=== PATIENT | male | born 1960 | race Caucasian/White ===

== ENCOUNTER → 2020-03-20 09:11 | Outpatient (BNVA) | payer MEDICARE, MEDICAID, SELFPAY | PROVIDERS: Visit Provider Nurse Practitioner Family | DX: R53.83 Other fatigue (principal); Z12.5 Encounter for screening for malignant neoplasm of prostate; E78.2 Mixed hyperlipidemia; E11.9 Type 2 diabetes mellitus without complications; I10 Essential (primary) hypertension; E55.9 Vitamin D deficiency, unspecified | CPT/HCPCS: 36415; 85025 ==

== ENCOUNTER → 2020-03-20 11:00 | Outpatient (BNVA) | payer MEDICARE, MEDICAID, SELFPAY | PROVIDERS: Visit Provider Nurse Practitioner Family | DX: I10 Essential (primary) hypertension (principal); E11.9 Type 2 diabetes mellitus without complications; E78.2 Mixed hyperlipidemia; E55.9 Vitamin D deficiency, unspecified; R53.83 Other fatigue; Z12.5 Encounter for screening for malignant neoplasm of prostate | CPT/HCPCS: 80053; 80061; 82306; 83036; 84153; 84443 ==

== ENCOUNTER 2020-07-13 09:13 | Inpatient (IN) | payer MEDICARE, MEDICAID, SELFPAY ==
[2020-07-13] VITALS (8 sets, daily range): BP systolic 90–156; BP diastolic 58–83; PULSE 102–122; RESP 18–23; TEMP 36.9–37.6; O2SAT 93–96; BMI 24.1
--- NOTE | 2020-07-13 09:45 | ECG_ITS ---
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 Measurements Intervals Nelson Rate: 107 P: 62 AR: 151 QRS: -9 QRSD: 100 T: 70 QT: 327 QTc: 438 Interpretive Statements SINUS TACHYCARDIA POSSIBLE LEFT ATRIAL ENLARGEMENT [-0.1mV P WAVE IN V1/V2] SEPTAL MYOCARDIAL INFARCTION , OF INDETERMINATE AGE [40+ ms Q WAVE IN V1/V2] No previous ECG available for comparison Electronically Signed On 07-13-2020 11:56:10 CDT by Raphael Thorne M.D. [id number]
--- NOTE | 2020-07-13 09:45 | XRR_ITS ---
PROCEDURE INFORMATION: Exam: XR Chest, 1 View Exam date and time: 07/13/2020 9:55 AM Age: 60 years old Clinical indication: Other: Pain all over; Additional info: Dyspnea/cough TECHNIQUE: Imaging protocol: XR of the chest Views: 1 view. COMPARISON: No relevant prior studies available. FINDINGS: Lungs: There is mild patchy opacification in the right upper lobe of the lung. The left lung is clear. Pleural space: Unremarkable. No pleural effusion. No pneumothorax. Heart/Mediastinum: Unremarkable. No cardiomegaly. Bones/joints: Unremarkable. XR/XR chest 1V portable [id number] IMPRESSION: There is mild patchy opacification in the right upper lobe of the lung consistent with pneumonia. A mass would also be a consideration.If there is desire for further evaluation, a CT scan could be performed.
--- NOTE | 2020-07-13 09:46 | CT_ITS ---
WS: [id number] CT HEAD TECHNIQUE: Noncontrast CT of the head obtained from the skullbase to the vertex. CLINICAL INFORMATION: Lsided weakness COMPARISON: None. DLP: 866.[address] scans at [facility] use at least one of these dose optimization techniques: automat ed exposure control; mA and/or kV adjustment per patient size (includes targeted exams where dose is matched to clinical indication); or iterative reconstruction. FINDINGS: No evidence of intracranial hemorrhage or mass effect. Ventricular system and basal cisterns are drake nt. Mild small vessel changes with mild parenchymal volume loss. No extra-axial fluid collections. No evidence of mass or mass effect. Normal mohan-white differentiation. Paranasal sinuses and mastoid air cells are well aerated. .Normal visualized soft tissues. Attempted notification Terrence Langford DO at 07/13/2020 10:[address]/CT head wo con* [id number] IMPRESSION: 1. No evidence of intracranial hemorrhage or mass effect. 2. Mild small vessel changes. Mild parenchymal volume loss. 3. No acute intracranial findings.
--- NOTE | 2020-07-13 09:49 | W.ED.GENADLT ---
HPI - General Adult General: Chief complaint: General Medical Stated complaint: PAIN ALL OVER Time Seen by Provider: 07/13/20 09:17 History of Present Illness: HPI narrative: 60 yo resents with complaints of muscle aches last week he had a subjective fever yesterday denies chest pain or cough. He did have a slight bit of diarrhea but that was after the use of a laxative because he been constipated he is not had any anosmia. He has had some slurring of speech and weakness of his legs, he can raise the right leg off the bed but is unable to demonstrate [id number] he cannot even raise the left leg off of the bed he has a previous injury to his right arm and cannot use it very well he has some nerve damage loss of extension at the wrist so he is a little bit difficult to evaluate Associated symptoms: Deny chest pain, dyspnea, malaise, nausea, rash or vomiting Review of Systems Const: Denies: fever(s), chills, body aches, change in appetite, fatigue or malaise ENMT: Denies: throat pain, ear or mastoid pain, nasal discharge or nasal congestion Card: Denies: chest pain, edema, dyspnea on exertion or orthopnea Resp: Denies: dyspnea, productive cough or non-productive cough GI: Denies: abdominal pain, nausea, vomiting, hematemesis, coffee ground emesis, diarrhea, constipation, bloating, hematochezia or melena : Denies: flank pain, dysuria, urinary frequency or urinary urgency Skin/Breast: Denies: rash or pruritus PFS ED PFSH: Medical History COPD (chronic obstructive pulmonary disease) Diabetes Essential hypertension Mixed hyperlipidemia Vitamin D deficiency Social History Smoking and tobacco status: current every day smoker Second hand smoke exposure: No Alcohol intake: current Desire information about alcohol rehabilitation?: No Counseling given: No Physical Exam Const: COMMON NORMALS: no acute distress GENERAL APPEARANCE: cooperative and comfortable ORIENTATION/CONSCIOUSNESS: Yes awake, Yes oriented to person, Yes oriented to place and Yes oriented to time HENMT: COMMON NORMALS: normocephalic and atraumatic HEAD & SCALP: normocephalic and atraumatic Eye: COMMON NORMALS: Equal, round and reactive pupils present, EOMs intact bilaterally, conjunctivae normal and no scleral icterus CONJUNCTIVA: Yes conjunctivae normal PUPIL: Yes Equal, round and reactive pupils present Neck/C-Spine: COMMON NORMALS: full ROM, no lymphadenopathy, supple and no JVD Lymph: LYMPHATIC: no lymphadenopathy noted and no lymphedema noted Resp: COMMON NORMALS: normal respiratory effort, No retractions, No use of accessory muscles and clear to auscultation bilaterally AUSCULTATION: clear to auscultation bilaterally Cardio: COMMON NORMALS: no JVD, regular rate, regular rhythm and No murmurs present (Cardio) RATE: regular rate RHYTHM: regular rhythm GI: COMMON NORMALS: Soft to palpation and No hepatosplenomegaly present AUSCULTATION: Yes normoactive bowel sounds PALPATION: Yes Soft to palpation, No Tenderness to palpation present (GI), No Guarding due to palpation present (GI) and Yes No hepatosplenomegaly present Extremity: NARRATIVE EXTREMITY EXAM: Loss of extension at the wrist on the right hand he cannot functionally make wrist there was a long-term problem he has no pronator drift in the left hand and 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 Lower extremities no edema he has the ability to raise the right leg up off the bed and hold it up in the year for a count of 5 to 7 seconds, he cannot demonstrate [id number] using the right leg or the left leg and he cannot lift left leg above the bed. Neuro: SENSORIUM/ORIENTATION: Yes oriented to person, Yes oriented to place and Yes oriented to time Skin: COMMON NORMALS: no rashes or lesions noted GENERAL SKIN EXAM: no rashes or lesions noted Course Vital Signs: Vital signs: Vital Signs Temperature 98.5 F 07/13/20 09:19 Pulse Rate 119 H 07/13/20 10:30 Respiratory Rate 22 H 07/13/20 09:30 Blood Pressure 107/78 07/13/20 10:30 Pulse Oximetry 94 07/13/20 09:30 MDM - General Adult MDM Narrative: Medical decision making narrative: Patient has leukocytosis hyponatremia his hyponatremia does correct to 126. He is a little bit tachycardic as well. His chest x-ray was normal he does look like he has a cystitis. He also looks to be volume contracted. We will give him fluid bolus admit him for IV antibiotics correction of his hyponatremia and replenishment of fluids. He may also need increased level of medication for managing his diabetes. Discussed Dr. Mccoy she will admit. Lab Data: Labs: Lab Results 07/13/20 07/13/20 07/13/20 Range/Units 10:15 10:15 10:15 WBC 23.9 H (4.0-10.0) 10^3/ uL RBC 3.96 L (4.1-5.3) 10^6/u L Hgb 13.5 (11.7-16.6) g/dL Hct 37.7 L (42.0-52.0) % MCV 95.2 H (80-94) fL MCH 34.1 H (28.0-34.0) pg MCHC 35.8 (30.0-36.0) g/dL RDW 11.7 L (12.1-15.1) % Plt Count 111 L (130-400) 10^3/c mm MPV 11.2 H (7.4-10.4) fL Neut % (Auto) 89.0 % Lymph % (Auto) 2.3 % Davis % (Auto) 6.7 % Eos % (Auto) 0.2 % Baso % (Auto) 0.0 % Neut # (Auto) 21.26 H (1.8-7.7) 10^3/u L Lymph # (Auto) 0.6 L (0.8-4.8) 10^3/u L Davis # (Auto) 1.6 H (0.2-0.9) 10^3/u L Eos # (Auto) 0.0 (0.0-0.8) 10^3/u L Baso # (Auto) 0.0 (0.0-0.1) 10^3/u L Nucleated RBC % (a uto) 0 % Nucleated RBCs # 0.0 /100WBC Sodium 122 L (136-145) mmol/L Potassium 3.9 (3.5-5.1) mmol/L Chloride 85 L (98-107) mmol/L Carbon Dioxide 23 (22-29) mmol/L Anion Gap 17.9 (5-19) BUN 47 H (8-23) mg/dL Creatinine 1.0 (0.7-1.2) mg/dL GFR Calculation 76.2 L (90-130) mL/min Glucose 349 H (65-115) mg/dL Calculated Osmolal ity 266 L (285-295) mOsm/k g Lactic Acid 3.3 H (0.5-2.2) mmol/L Calcium 8.2 L (8.5-10.5) mg/dL Total Bilirubin 1.0 (0.15-1.2) mg/dL AST 97 H (0-40) U/L ALT 53 H (0-41) U/L Alkaline Phosphata se 138 H (40-130) IU/L Creatine Kinase 86 (39-308) U/L Total Protein 7.0 (6.6-8.7) g/dL Albumin 2.7 L (3.5-5.2) g/dL Globulin 4.3 (1.3-4.6) g/dL Urine Color (Yellow) Urine Appearance (CLEAR) Urine pH (5-7) Ur Specific Gravit y (1.005-1.030) Urine Protein (Negative) Urine Glucose (UA) (Normal) Urine Ketones (Negative) Urine Blood (Negative) Urine Nitrate (Negative) Urine Bilirubin (NEGATIVE) Urine Urobilinogen (Negative) mg/dL Ur Leukocyte Nia ase (Negative) Urine RBC (0-2) /hpf Urine WBC (0-5) /hpf Ur Squamous Epith Cells (0-5) Amorphous Sediment Urine Bacteria (NONE) Hyaline Casts Fine Granular Cast s /lpf Urine Mucus 07/13/20 Range/Units 10:20 WBC (4.0-10.0) 10^3/ uL RBC (4.1-5.3) 10^6/u L Hgb (11.7-16.6) g/dL Hct (42.0-52.0) % MCV (80-94) fL MCH (28.0-34.0) pg MCHC (30.0-36.0) g/dL RDW (12.1-15.1) % Plt Count (130-400) 10^3/c mm MPV (7.4-10.4) fL Neut % (Auto) % Lymph % (Auto) % Davis % (Auto) % Eos % (Auto) % Baso % (Auto) % Neut # (Auto) (1.8-7.7) 10^3/u L Lymph # (Auto) (0.8-4.8) 10^3/u L Davis # (Auto) (0.2-0.9) 10^3/u L Eos # (Auto) (0.0-0.8) 10^3/u L Baso # (Auto) (0.0-0.1) 10^3/u L Nucleated RBC % (a uto) % Nucleated RBCs # /100WBC Sodium (136-145) mmol/L Potassium (3.5-5.1) mmol/L Chloride (98-107) mmol/L Carbon Dioxide (22-29) mmol/L Anion Gap (5-19) BUN (8-23) mg/dL Creatinine (0.7-1.2) mg/dL GFR Calculation (90-130) mL/min Glucose (65-115) mg/dL Calculated Osmolal ity (285-295) mOsm/k g Lactic Acid (0.5-2.2) mmol/L Calcium (8.5-10.5) mg/dL Total Bilirubin (0.15-1.2) mg/dL AST (0-40) U/L ALT (0-41) U/L Alkaline Phosphata se (40-130) IU/L Creatine Kinase (39-308) U/L Total Protein (6.6-8.7) g/dL Albumin (3.5-5.2) g/dL Globulin (1.3-4.6) g/dL Urine Color Kohler (Yellow) Urine Appearance Clear (CLEAR) Urine pH 5 (5-7) Ur Specific Gravit y 1.015 (1.005-1.030) Urine Protein 1+ H (Negative) Urine Glucose (UA) 4+ H (Normal) Urine Ketones 1+ H (Negative) Urine Blood 3+ H (Negative) Urine Nitrate Negative (Negative) Urine Bilirubin 1+ H (NEGATIVE) Urine Urobilinogen 1 H (Negative) mg/dL Ur Leukocyte Nia ase Trace H (Negative) Urine RBC 5-10 H (0-2) /hpf Urine WBC 15-25 H (0-5) /hpf Ur Squamous Epith Cells None (0-5) Amorphous Sediment Not Reportable Urine Bacteria 2+ H (NONE) Hyaline Casts 10-15 H Fine Granular Cast s 0-4 H /lpf Urine Mucus Trace Discharge Plan Discharge Patient Disposition: Admitted As Inpatient Clinical Impression: Cystitis, Diabetes, Essential hypertension, Acute hyponatremia, Sepsis Condition: Stable Prescriptions: No Action hydrocodone-acetaminophen 10-325 mg tablet 1 tab PO TID PRN (Reason: Pain) RF: 0 amlodipine 2.5 mg tablet 2.5 mg PO DAILY 30 Days Qty: 30 RF: 5 lisinopril 40 mg tablet 40 mg PO DAILY 30 Days Qty: 30 RF: 5 Januvia 25 mg tablet 25 mg PO DAILY Qty: 30 RF: 0 metformin 500 mg tablet 500 - 1,000 mg PO DAILY PRN (Reason: Type II DM) 30 Days Qty: 60 RF: 2 Aspir-81 81 mg Tablet,Delayed Release (Dr/Ec) 81 mg PO PRN RF: 0 Coding Level of Care Code 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
[2020-07-13 10:22] LABS: Eosinophils % 0.2 %; Hematocrit 37.7 % (42.0-52.0); Hemoglobin 13.5 g/dL (11.7-16.6); Lymphocytes # 0.6 10^3/uL (0.8-4.8); Lymphocytes % 2.3 %; Mean Corpuscular HGB Conc 35.8 g/dL (30.0-36.0); Mean Corpuscular Hemoglobin 34.1 pg (28.0-34.0); Mean Corpuscular Volume 95.2 fL (80-94); Mean Platelet Volume 11.2 fL (7.4-10.4); Monocytes # 1.6 10^3/uL (0.2-0.9); Monocytes % 6.7 %; Neutrophils # 21.26 10^3/uL (1.8-7.7); Nucleated Red Blood Cells % 0 %; Platelet Count 111 10^3/cmm (130-400); Red Blood Count 3.96 10^6/uL (4.1-5.3); Red Cell Distribution Width 11.7 % (12.1-15.1); White Blood Count 23.9 10^3/uL (4.0-10.0)
[2020-07-13 10:39] LABS: Alanine Aminotransferase 53 U/L (0-41); Albumin Level 2.7 g/dL (3.5-5.2); Alkaline Phosphatase 138 IU/L (40-130); Anion Gap 17.9 (5-19); Aspartate Amino Transferase 97 U/L (0-40); Blood Urea Nitrogen 47 mg/dL (8-23); Calcium 8.2 mg/dL (8.5-10.5); Carbon Dioxide 23 mmol/L (22-29); Chloride 85 mmol/L (98-107); Creatine Phosphokinase 86 U/L (39-308); Globulin 4.3 g/dL (1.3-4.6); Glomerular Filtration Rate 76.2 mL/min (90-130); Glucose 349 mg/dL (65-115); Osmolality Calculated 266 mOsm/kg (285-295); Potassium 3.9 mmol/L (3.5-5.1); Sodium 122 mmol/L (136-145)
[2020-07-13 11:06] LABS: Add Urine Microscopic? YES; Bilirubin Urine 1+ (NEGATIVE); Blood Urine 3+ (Negative); Glucose Urine UA 4+ (Normal); Ketones Urine 1+ (Negative); Leukocyte Esterase Urine Trace (Negative); Nitrate Urine Negative (Negative); Protein Urine 1+ (Negative); Specific Gravity, Urine 1.015 (1.005-1.030); Urine Appearance Clear (CLEAR); Urine Color Orange (Yellow); Urobilinogen Urine 1 mg/dL (Negative); pH Urine 5 (5-7)
[2020-07-13 11:07] LABS: Add Urine Culture? Yes; Bacteria Urine 2+; Fine Granular Casts Urine 0-4 /lpf; Mucus Urine TRACE; WBC Urine 15-25 /hpf (0-5)
[2020-07-13] MEDS: sodium chloride 0.9% 1,000 ML 999 ML IV (11:39)
[2020-07-13] MEDS: cefTRIAXone 1,000 MG in sodium chloride 0.9% (plus) 50 ML 100 MG IV (11:39)
[2020-07-13 11:55] LABS: Lactic Sepsis W/Reflex 3.3 mmol/L (0.5-2.2)
--- NOTE | 2020-07-13 12:44 | CT_ITS ---
WS: [id number] CT LUMBAR SPINE TECHNIQUE: Noncontrast CT of the lumbar spine with coronal and sagittal reformatted images. CLINICAL INFORMATION: Severe back pain COMPARISON: None. DLP: 1916.[address] scans at [facility] use at least one of these dose optimization techniques: automat ed exposure control; mA and/or kV adjustment per patient size (includes targeted exams where dose is matched to clinical indication); or iterative reconstruction. FINDINGS: Mild lumbar curve. No acute compression. No high-grade central canal stenosis. Mild disc bulging L3-L 4, L4-L5 and L5-S1. L1-L2: Normal. L2-L3: Mild annular bulging. Mild left foraminal narrowing. Spinal canal and right foramen are patent . Mild facet arthropathy. L3-L4: Mild annular bulging with a tiny central protrusion. Spinal canal and foramen are patent. Mild facet arthropathy. L4-L5: Broad-based central disc protrusion with mild central canal stenosis. Narrowing of the right subarticular recess. Encroachment traversing right L5 nerve root. Mild facet arthropathy. Mild right foraminal narrowing. L5-S1: Tiny central disc protrusion with slight effacement of the ventral thecal sac. Slight encroach ment traversing S1 nerve roots without significant impingement. Foramen are patent. Mild facet arthro saman. Visualized pelvic bony structures: Normal. Paravertebral soft tissues: Normal. CT/CT lumbar spine wo con* [id number] IMPRESSION: 1. Mild lumbar curve. No acute compression. No high-grade central canal stenos is. 2. Mild annular bulging L4-5 with a small central right pericentral protrusio n. Mild central canal stenosis with mild right foraminal narrowing. Encroachmen t traversing right L5 nerve root. 3. Small central protrusion L5-S1 with slight encroachment traversing S1 nerve roots bilaterally. 4. Mild facet arthropathy L4-L5 and L5-S1.
--- NOTE | 2020-07-13 12:44 | CT_ITS ---
WS: [id number] CT THORACIC SPINE TECHNIQUE: Noncontrast CT of the thoracic spine with coronal and sagittal reformatted images. CLINICAL INFORMATION: severe back pain COMPARISON: None. DLP: 1327.[address] scans at [facility] use at least one of these dose optimization techniques: automat ed exposure control; mA and/or kV adjustment per patient size (includes targeted exams where dose is matched to clinical indication); or iterative reconstruction. FINDINGS: Mild thoracic kyphosis. Mild thoracic curve. No high-grade central canal stenosis. No acute appearing compression fractures. Disc space heights and vertebral body heights well-preserved. Minimal spondyl itic changes. Mild to moderate facet arthropathy lower thoracic spine. Partially visualized opacity w ith cavitation in the right upper lobe laterally. Recommend further evaluation with chest CT. This is only partially visualized and measures 2.[address]/CT thoracic spin wo con* [id number] IMPRESSION: 1. Mild thoracic curve. Mild thoracic kyphosis. 2. No acute appearing compression fractures. 3. No significant central canal stenosis. 4. Partially visualized cavitating lesion in the right upper lobe laterally me asuring 2.5 x 2.1 CM. Neoplasm is not excluded. Recommend further evaluation wi chest CT. This is only partially evaluated.
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
[2020-07-13 13:13] LABS: Reflex Lactate Order REFLEX LACTIC ORDERD
[2020-07-13] MEDS: enoxaparin 40 mg/0.4 mL Syringe SUBCUT (13:21)
[2020-07-13 13:42] LABS: Estmated Average Glucose 174; Hemoglobin A1C 7.7 % (4.0-6.0)
[2020-07-13 14:00] LABS: Hepatitis A Antibody IgM Non-Reactive (Nonreactive); Hepatitis B Core IgM Non-Reactive (Nonreactive); Hepatitis B Surface Antigen Non-Reactive (Nonreactive); Hepatitis C Virus Antibody Non-Reactive (Nonreactive)
[2020-07-13 14:15] LABS: Lactic Acid level (Lactate) 2.3 mmol/L (0.5-2.2)
[2020-07-13 15:52] LABS: Sodium 127 mmol/L (136-145)
[2020-07-13 17:22] LABS: Glucose Point of Care 241 mg/dL (70-110)
--- NOTE | 2020-07-13 17:49 | PC.NURSE ---
Brother Greg Coello phone number is Home:
--- NOTE | 2020-07-13 17:49 | PC.NURSE ---
Som green lunchbox with medications sent home with patient's brother.
--- NOTE | 2020-07-13 20:24 | CTR_ITS ---
PROCEDURE INFORMATION: Exam: CT Chest With Contrast Exam date and time: 07/13/2020 9:36 PM Age: 60 years old Clinical indication: Abnormal findings; Lung mass or nodule; H[place]ck[place] lesion; Additional info: Cavitary lesion on CT thoracic spine TECHNIQUE: Imaging protocol: Computed tomography of the chest with intravenous contrast. Radiation optimization: All CT scans at this facility use at least one of these dose optimization techniques: automated exposure control; mA and/or kV adjustment per patient size (includes targeted exams where dose is matched to clinical indication); or iterative reconstruction. Contrast material: OMNI 300; Contrast volume: 95 ml; Contrast route: INTRAVENOUS (IV); COMPARISON: CR XR chest 1V portable [id number] 07/13/2020 9:46 AM RADIATION DOSE METRICS: Total DLP (mGy-cm): 505.99 FINDINGS: Lungs: There is a 3.2 x 2.5 cm pleural based mass in the right upper lobe of the lung as seen on sagittal image 54. There is internal gas. No associated calcification. There is an adjacent 0.7 cm nodule in the right upper lobe on series 2, image 19 and a 1.3 cm nodule in the anterior right upper lobe on image 24. There are nodules in the right middle lobe on series 2, images 39 and 40 measuring less than a cm in size. There is a 1.3 cm nodule in the left upper lobe with internal cavitation on series 2, image 22 and a 0.3 cm nodule in the left lower lobe on image 34. There is a calcified granuloma in the right middle lobe of the lung. Pleural space: Unremarkable. No pneumothorax. No pleural effusion. Heart: Unremarkable. No cardiomegaly. No pericardial effusion. Mediastinal space: There are right paratracheal and subcarinal mediastinal calcifications. Aorta: Unremarkable. No aortic aneurysm. Lymph nodes: Unremarkable. No enlarged lymph nodes. Adrenals: There is thickening of the left adrenal gland. Bones/joints: Unremarkable. No acute fracture. Soft tissues: Unremarkable. CT/CT chest w con* [id number] IMPRESSION: There is a pleural based mass in the right upper lobe of the lung with internal cavitation. Other nodules are identified in the bilateral lungs. Findings are suspicious for malignancy with multifocal metastatic nodules.If there is desire for further evaluation, a PET scan or biopsy could be performed. Radiation Dose CTDIVOL = (mGy): DLP = 505.99 (mGy-cm)
[2020-07-13 20:36] LABS: Glucose Point of Care 172 mg/dL (70-110)
[2020-07-13] MEDS: iohexol 300 mg/mL 100 mL Btl IV (22:01)
[2020-07-13] MEDS: sodium chloride 0.9% 1,000 ML 75 ML IV (22:42)
[2020-07-13 23:32] LABS: Sodium 130 mmol/L (136-145)
[2020-07-14] VITALS (7 sets, daily range): BP systolic 108–137; BP diastolic 62–69; PULSE 91–108; RESP 14–24; TEMP 36.4–38.8; O2SAT 93–96; BMI 24.1
[2020-07-14 04:43] LABS: Basophils # 0.2 10^3/uL (0.0-0.1); Basophils % 0.8 %; Hematocrit 35.2 % (42.0-52.0); Hemoglobin 12.2 g/dL (11.7-16.6); Lymphocytes # 0.7 10^3/uL (0.8-4.8); Lymphocytes % 3.2 %; Mean Corpuscular HGB Conc 34.7 g/dL (30.0-36.0); Mean Corpuscular Hemoglobin 33.4 pg (28.0-34.0); Mean Corpuscular Volume 96.4 fL (80-94); Mean Platelet Volume 12.1 fL (7.4-10.4); Monocytes # 1.5 10^3/uL (0.2-0.9); Monocytes % 6.8 %; Neutrophils # 19.74 10^3/uL (1.8-7.7); Neutrophils % 87.6 %; Nucleated Red Blood Cells % 0 %; Platelet Count 85 10^3/cmm (130-400); Red Blood Count 3.65 10^6/uL (4.1-5.3); Red Cell Distribution Width 11.9 % (12.1-15.1); White Blood Count 22.5 10^3/uL (4.0-10.0)
[2020-07-14] MEDS: acetaminophen 325 mg Tablet 650 MG PO (05:38)
[2020-07-14 05:56] LABS: Alanine Aminotransferase 48 U/L (0-41); Albumin Level 2.2 g/dL (3.5-5.2); Alkaline Phosphatase 129 IU/L (40-130); Anion Gap 16.5 (5-19); Aspartate Amino Transferase 74 U/L (0-40); Blood Urea Nitrogen 29 mg/dL (8-23); Carbon Dioxide 23 mmol/L (22-29); Chloride 99 mmol/L (98-107); Globulin 3.7 g/dL (1.3-4.6); Glomerular Filtration Rate 98.6 mL/min (90-130); Glucose 215 mg/dL (65-115); Osmolality Calculated 284 mOsm/kg (285-295); Potassium 3.5 mmol/L (3.5-5.1); Sodium 135 mmol/L (136-145); Total Bilirubin 0.7 mg/dL (0.15-1.2); Total Protein 5.9 g/dL (6.6-8.7)
[2020-07-14 06:40] LABS: Glucose Point of Care 206 mg/dL (70-110)
--- NOTE | 2020-07-14 10:22 | USCV_ITS ---
Nik Coello Age: 60 Gender: M : 1960 Exam Date: 07/14/2020 14:35 Ordering Phys: Brina Mccoy DO Technologist: Shira Chong Exam Location: [facility] [place] Indication: BACTERMIA BP: / HR: 110 Rhythm: Sinus Technical Quality: Adequate MEASUREMENTS (Male / Female) Normal Values 2D ECHO LV Diastolic Diameter PLAX 4.0 cm 4.2 - 5.9 / 3.9 - 5.3 cm LV Systolic Diameter PLAX 2.3 cm LV Chamber Size 4.0 cm IVS Diastolic Thickness 1.7 cm 0.6 - 1.0 / 0.6 - 0.9 cm IVS Systolic Thickness 1.4 cm LVPW Diastolic Thickness 1.1 cm 0.6 - 1.0 / 0.6 - 0.9 cm LVPW Systolic Thickness 1.1 cm RV Chamber Size 2.3 cm LVOT Diameter 2.0 cm LV Ejection Fraction 2D Teich 74.1 % LV Ejection Fraction MOD 2C 34.3 % LV Ejection Fraction 2C AL 36.1 % LA Diameter 6.0 cm LA Width 3.9 cm LA Height 4.8 cm RA Width 3.4 cm RA Height 3.5 cm Aorta at Sinotubular Diameter 3.0 cm M-MODE LV Diastolic Diameter MM 4.2 cm 4.2 - 5.9 / 3.9 - 5.3 cm LV Systolic Diameter MM 2.0 cm LV Ejection Fraction MM Teich 82.7 % IVS Diastolic Thickness MM 1.2 cm 0.6 - 1.0 / 0.6 - 0.9 cm IVS Systolic Thickness MM 1.7 cm LVPW Diastolic Thickness MM 1.3 cm 0.6 - 1.0 / 0.6 - 0.9 cm LVPW Systolic Thickness MM 1.5 cm RV Diastolic Diameter MM 1.4 cm Aortic Annulus Diameter 3.5 cm LA Ao Ratio MM 1.7 MV E Point Septal Separation 0.6 cm DOPPLER AV Peak Velocity 245.0 cm/s LVOT Peak Velocity 156.0 cm/s AV Area Cont Eq vti 2.4 cm squared AV Area Cont Eq pk 2.1 cm squared MV Area PHT 5.1 cm squared Mitral E to A Ratio 1.2 MV E' Velocity 8.0 cm/s Mitral E to MV E' Ratio 12.5 Mitral E to LV E' Lateral Ratio 17.4 Mitral E to LV E' Septal Ratio 9.8 TR Peak Velocity 262.4 cm/s TR Peak Gradient 27.5 mmHg TR Mean Velocity 200.1 cm/s TR Mean Gradient 18.0 mmHg TR Velocity Time Integral 58.4 cm TV Peak E Velocity 87.0 cm/s Right Atrial Pressure 3.0 mmHg Pulmonary Artery Systolic Pressu 30.5 mmHg PV Peak Velocity 109.0 cm/s RV Acceleration Time 0.1 s RV Ejection Time 0.3 s RV AcT/ET 0.5 FINDINGS Left Ventricle Normal left ventricular size, systolic function and wall thickness, with no regional wall motion abnormalities. Normal left ventricular wall thickness. LVEF is 60 to 65%. Normal diastolic filling pattern. Right Ventricle The right ventricle is normal in size and function. Right Atrium The right atrium is normal in size. Left Atrium The left atrium is normal in size. Mitral Valve There is a fluttering structure in proximity to mitral valve. This could represent subvalvular apparatus/chordae. Cannot rule out vegetation. Aortic Valve Aortic valve is thickened.. There is mild aortic stenosis. Tricuspid Valve Structurally normal tricuspid valve without significant stenosis or regurgitation. Insufficient TR jet to measure RVSP. Pulmonic Valve Structurally normal pulmonic valve without significant stenosis. There is no pulmonic regurgitation. Pericardium Normal pericardium without effusion. Aorta Normal ascending aorta dimension. CONCLUSIONS LV systolic function is normal with EF of 60 to 65%. Normal diastolic function. There is a fluttering structure in proximity to mitral valve. This could represent subvalvular apparatus/chordae however cannot rule out vegetation. If clinical suspicion of endocarditis is present, will recommend performing transesophageal echocardiogram. Raphael Thorne MD (Electronically Signed) Final Date: 14 July 2020 19:05 S
--- NOTE | 2020-07-14 10:47 | PC.CHAP ---
Pastoral Care Encounter/Spiritual Assessment Type of Contact [] Declined bait maker visit [] Patient/Family/Request visit [] Outpatient visit [] Follow-up visit [] Physician referral [] Code/Alert [x] Routine visit [] Staff referral [] Actively dying [] Patient sleeping [] Family support [] [] Out of room [] Palliative care [] [x] Receiving care in room [] Pre-surgical visit [] Trauma [x] Long length of stay [] ICU visit [] Other: Relational/Emotional Strength [x] Patient feels connected with others/family/visitors/staff [] Distress [] Loneliness/isolation [] Abandonment Spirituality of Patient [] Person of Lexi [] Attends Gnosticist of their Lexi [] Believes in Prayer [] Reads Bible or Jewish materials [] There are Spiritual issues to be addressed Deicer Finisher Interventions [] Prayer [] Active listening [] Non-anxious presence [] Spiritual/emotional support [] Crisis/trauma care [x] Spiritual counseling [] Bereavement support [] Provided bereavement packet [] Provided Bible/devotional materials [] Provided toy/stuffed animal, coloring book to patient or family member [] Provided Communion [] Anointing/[place] [] Salvation [] Completed spiritual assessment [] Other: Impact on Illness or Injury [] Angry [] Fearful [] Anxious [] Often cries [] Exhaustion [x] Unable to work [] Unable to attend uatsdin [] Unable to walk/stand [] Unable to read [x] Unable to drive [] Unable to eat/drink [] Unable to sleep [] Unable to be with family [] Patient intubated [] Other: Summary In pain doesn't know about treatment or any testing, has negative attitude, able to communicate Time spent with patient 10 mins
--- NOTE | 2020-07-14 11:27 | PM.PN ---
Subjective Subjective: Interval history: Patient awake in bed at time of exam today. Reported that he felt tired due to having vitals and labs overnight. He reported that the left leg weakness is slightly improved today. Reports that he feels slightly better with more energy but continues to feel ill. Patient denies any chest pain, no cough, no abdominal pain or nausea. Vitals/I&O/Wt Last Vital Signs Temp 98.1 F 07/14/20 08:00 Pulse 91 07/14/20 08:00 Resp 18 07/14/20 08:00 BP 108/62 07/14/20 08:00 Pulse Ox 94 07/14/20 08:00 07/13/20 07/14/20 07/14/20 22:59 06:59 14:59 Intake Total 220 / 2433.63 240 / 240 Output Total 425 / 726 Balance 219 / 2132.63 -425 / 1707.63 240 / 240 Weight last 48 hrs Weight 72.121 kg Weight 72.121 kg Physical Exam Const: COMMON NORMALS: patient oriented x3 and alert GENERAL APPEARANCE: cooperative and frail appearing NUTRITIONAL APPEARANCE: thin ORIENTATION/CONSCIOUSNESS: Yes awake, Yes oriented to person, Yes oriented to place and Yes oriented to time HENMT: COMMON NORMALS: normocephalic and atraumatic HEAD & SCALP: normocephalic and atraumatic Eye: COMMON NORMALS: Equal, round and reactive pupils present PUPIL: Yes Equal, round and reactive pupils present Neck/C-Spine: COMMON NORMALS: supple GENERAL: Yes normal visual inspection Resp: COMMON NORMALS: normal respiratory effort and clear to auscultation bilaterally EFFORT & INSPECTION: Yes able to speak in complete sentences AUSCULTATION: clear to auscultation bilaterally, no rhonchi and no wheezes Cardio: COMMON NORMALS: regular rhythm RATE: tachycardic RHYTHM: regular rhythm OTHER: Faint systolic murmur GI: COMMON NORMALS: Soft to palpation INSPECTION: No abdominal distension AUSCULTATION: Yes normoactive bowel sounds PALPATION: Yes Soft to palpation OTHER: No tenderness to palpation today : COMMON NORMALS: Yes no CVA tenderness BLADDER/KIDNEY EXAM: Yes no CVA tenderness Back/Pelvis: COMMON NORMALS: no CVA tenderness Extremity: COMMON NORMALS: no clubbing, cyanosis or edema and no calf tenderness Neuro: COMMON NORMALS: patient oriented x3, CN's II-XII intact bilaterally and no focal motor deficits SENSORIUM/ORIENTATION: Yes alert, Yes oriented to person, Yes oriented to place and Yes oriented to time SPEECH: speech normal OTHER: Normal sensation in the lower extremities bilaterally, normal movement of the left upper extremity, chronic contracture in the right upper extremity Difficulty raising the leg with straight leg raise on the left No saddle anesthesia, no incontinence of bowel or bladder Psych: COMMON NORMALS: mental status grossly normal and cooperative Skin: COMMON NORMALS: no rashes or lesions noted GENERAL SKIN EXAM: no rashes or lesions noted Data : 07/14/20 04:10 07/14/20 04:10 Micro: Microbiology 07/14/20 10:45 Blood Culture - Preliminary Blood SPECIMEN COLLECTED 07/14/20 10:34 Blood Culture - Preliminary Blood SPECIMEN COLLECTED 07/13/20 10:20 Urine Culture - Preliminary Urine,Clean Catch Staphylococcus aureus 07/13/20 10:15 Blood Culture - Preliminary Blood Gram positive cocci 07/13/20 11:32 Blood Culture - Preliminary Blood Gram positive cocci A&P Assessment and plan (1) Sepsis: Secondary to bacteremia Urine and blood now showing gram-positive cocci, broadened antibiotic coverage with IV vancomycin and Zosyn Hold home antihypertensives Status: Acute (2) Cystitis: Urine culture showing gram-positive cocci Concern for MSSA or MRSA bacteremia, awaiting further culture results. Broadened antibiotic coverage to IV vancomycin and Zosyn Status: Acute (3) Acute hyponatremia: Improved Status: Acute (4) Essential hypertension: Hold home amlodipine and lisinopril Status: Acute (5) Diabetes: Hold metformin due to lactic acidosis Place on moderate dose sliding scale insulin Status: Acute Additional A&P Information Staph aureus bacteremia: Repeat blood cultures ordered today, broadened antibiotic coverage to IV vancomycin and Zosyn. Echocardiogram ordered. Will further evaluate with MRI of the cervical, thoracic and lumbar spine to determine cause of infectious process. If TTE negative will plan for MARISSA. Lung lesion: Discussed with Dr. Woo in consultation, will hold off on biopsy at this time and continue to treat infectious process. Repeat CT scan following discharge with further management at that time as indicated. Discussed with patient question of infectious versus metastatic disease Generalized malaise and weakness: PT and OT ordered, CT scan of the lumbar and thoracic spine ordered. May require MRI of the spine to further evaluate for discitis or further pathology if indicated. Thrombocytopenia: Likely secondary to sepsis Elevated AST and ALT, appears to be chronic in nature, hepatitis panel is negative Hypoalbuminemia Hematuria: Due to UTI we will continue to monitor closely with consideration of renal ultrasound if indicated DVT prophylaxis: Lovenox Diet: Clear liquid, increase as tolerated CODE STATUS: DNR/DNI, discussed with patient at time of exam and his brother was at bedside during discussion Attestations Medical Necessity Statement*: Patient requires further hospitalization due to bacteremia with staph aureus, lung lesion, sepsis, acute cystitis Coding Level of Care Code Acute Dry 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
[2020-07-14 11:36] LABS: Glucose Point of Care 268 mg/dL (70-110)
--- NOTE | 2020-07-14 12:02 | PM.CONSULT ---
Providers/Reason For Consult Consulting Physican/Specialty*: Pulmonary critical care medicine Reason for Consult*: Staph bacteremia with cavitary lung lesion concern for primary lung malignancy Attending Physician: Brina Mccoy DO History of Present Illness History of Present Illness Nik Coello is a 60 year old male with a history of hypertension and diabetes. The patient had not been at [facility] in the past and information on his past medical record is limited. Based on his medical record from March 2020 by his primary care provider it appears that the patient carries a diagnosis of COPD, diabetes, hypertension, hyperlipidemia and vitamin D deficiency. The patient tells me today that he has never smoked. However his mental status was questionable when I evaluated him today. I do not have any previous pulmonary function test available. The blood work in March also revealed an A1c of 8.8 consistent with poorly controlled diabetes, his liver enzymes are also elevated. The patient came in yesterday with progressive weakness in bilateral lower extremities. During evaluation the patient was found to have leukocytosis, thrombocytopenia, hyponatremia and elevated BUN. The patient underwent a chest x-ray as part of the evaluation which revealed right upper lung zone infiltrate. This was followed by CT scan of the chest. The CT scan of the chest revealed several cavitary pulmonary nodule in different stages of development predominantly in the peripheral distribution consistent with septic embolus. There is no pleural effusion. The initial urinalysis was consistent with UTI. Interestingly the urine culture is positive for staph aureus. The blood cultures are also positive for gram-positive cocci. Given the presence of gram-positive bacteremia and staph aureus growing from urine this is all likely to represent septic embolus with staph aureus. Interestingly, the patient does not have a definitive source for the staph aureus bacteremia. The CT scan of the chest is not consistent with a staph pneumonia rather than septic embolus. The patient does not have any prosthetic in his body or in the heart. He denies any history of IV drug use or any kind of drug use. The patient also underwent a CT scan of the thoracic and lumbar spine and there is no evidence of epidural abscess. His CT scan of the head also did not reveal any prove for metastatic abscess or infection. I have seen and examined the patient in his room today. He appeared to be very weak and somewhat confused. I was unable to get a proper history from the patient. He denies any cough, sputum production, wheezing, shortness of breath, hemoptysis, weight loss or loss of appetite. His blood work today reveals a stable leukocytosis with worsening thrombocytopenia, hyponatremia has been corrected. The BUN level is also come down with fluid resuscitation yesterday in the ED and the patient is on maintenance IV fluid at this time. There is no significant anion gap or any evidence of diabetic ketoacidosis. The persistent elevated ALT and AST will require further evaluation. His albumin is 2.2. Review of Systems Narrative: Review of system is limited because of the patient's mental status. Please see the HPI for the review of systems. Meds/Allergies Home Medications and Allergies Home Medications Medication Instructions Recorded Confirmed Last Taken Type amlodipine 2.5 mg tablet 2.5 mg PO DAILY 30 Days #30 tab 03/20/20 07/13/20 07/12/20 Rx hydrocodone 10 mg-acetaminophen 1 tab PO TID PRN 03/20/20 07/13/20 07/13/20 History 325 mg tablet lisinopril 40 mg tablet 40 mg PO DAILY 30 Days #30 tab 03/20/20 07/13/20 07/13/20 Rx sitagliptin 25 mg tablet 25 mg PO DAILY #30 tab 07/09/20 07/13/20 Unknown Rx aspirin [Aspir-81] 81 mg PO PRN 07/13/20 07/13/20 07/12/20 History 2 tabs metformin 500 mg tablet 500 - 1,000 mg PO DAILY PRN 30 07/13/20 07/13/20 07/13/20 Rx Days #60 tab 500 mg Allergies Allergy/AdvReac Type Severity Reaction Status Date / Time No Known Allergies Allergy Verified 07/13/20 10:29 Current Medications Current Medications Generic Name Dose Route Start Last Admin Trade Name Freq PRN Reason Stop Dose Admin Acetaminophen 650 mg 07/13/20 12:46 07/14/20 05:38 Tylenol PO 650 mg Q6H PRN Administration Mild/Mod Pain Or Temp >/= 101 Docusate Sodium 100 mg 07/13/20 18:00 07/14/20 09:18 Colace PO Not Given BID DAWNA Enoxaparin Sodium 40 mg 07/13/20 13:00 07/13/20 13:21 Lovenox SUBCUT 40 mg Q24H DAWNA Administration Sodium Chloride 1,000 mls @ 75 mls/hr 07/13/20 13:00 07/13/20 22:42 Sodium Chloride 0.9% IV 75 mls/hr .[id number] DAWNA Administration Vancomycin HCl 1,250 mg/ 250 mls @ 200 mls/hr 07/14/20 11:00 07/14/20 11:34 Sodium Chloride IV 200 mls/hr Q12H DAWNA Administration Protocol Insulin Aspart 0 unit 07/13/20 21:00 07/13/20 22:42 Novolog SUBCUT 2 unit BEDTIME DAWNA Administration Protocol Insulin Aspart 0 unit 07/13/20 18:00 07/14/20 09:17 Novolog SUBCUT 6 unit TIDWM DAWNA Administration Protocol PFSH Acute PFSH: Medical History COPD (chronic obstructive pulmonary disease) Diabetes Essential hypertension Mixed hyperlipidemia Vitamin D deficiency Surgical History History of colonoscopy Family History Mother CAD (coronary artery disease) Diabetes Cirrhosis Father CAD (coronary artery disease) Social History Smoking and tobacco status: former smoker Second hand smoke exposure: No Alcohol intake: current Desire information about alcohol rehabilitation?: No Counseling given: No Substance/Drug Use: never Vitals/I&O/Wt Last Vital Signs Temp 97.6 F 07/14/20 11:37 Pulse 95 07/14/20 11:37 Resp 14 07/14/20 11:37 BP 113/62 07/14/20 11:37 Pulse Ox 96 07/14/20 11:37 07/13/20 07/14/20 07/14/20 22:59 06:59 14:59 Intake Total 220 / 2433.63 240 / 240 Output Total 425 / 726 Balance 219 / 2132.63 -425 / 1707.63 240 / 240 Weight last 48 hrs Weight 159 lb Weight 159 lb Physical Exam Narrative: EXAM NARRATIVE: General: Patient is somewhat confused, he is able to answer questions and follow commands however unable to provide a consistent history HEENT: Pupil bilateral symmetric, light reflex present, extraocular muscle movement intact Neck: No JVD, no cervical or supraclavicular lymphadenopathy. Respiratory: Inspection: No visible deformity of the chest wall Palpation: Trachea is mildly deviated to the right, bilateral symmetric expansion, bilateral symmetric vocal fremitus present Percussion: Bilateral tympanic percussion note both anterior and posteriorly Auscultation: Bilateral clear to auscultation both anterior and posteriorly, no crackles wheezing or rhonchi Cardiovascular: Regular rate and rhythm, S1-S2 present, no murmur, no peripheral edema. Abdomen: Soft, nontender, nondistended, positive bowel sound. No palpable organomegaly. Musculoskeletal: His right upper extremity is fixed in semi-flexed condition and the elbow and the wrist Skin: No rash Neuro: Patient is somewhat confused, able to move all extremities, I had not performed a complete neuro exam Data Micro: Micro: Microbiology 07/14/20 10:45 Blood Culture - Pr eliminary Blood SPECIMEN [facility] LAURA 07/14/20 10:34 Blood Culture - Pr eliminary Blood SPECIMEN [facility] LAURA 07/13/20 10:20 Urine Culture - Pr eliminary Urine,Clean Catch Staphylococcus aureus 07/13/20 10:15 Blood Culture - Pr eliminary Blood Gram positive c occi 07/13/20 11:32 Blood Culture - Pr eliminary Blood Gram positive c occi Other Data: Attestation for Other Data: I personally reviewed and interpreted the following: Other data: Please see the HPI for detail description of the laboratory, microbiologic and radiologic data A&P Assessment and plan (1) Staphylococcus aureus bacteremia: The patient is suffering from staph aureus bacteremia. The primary site of infection is unclear to me. The presence of multiple cavitary lung lesion at different stages of development and predominantly in the periphery is consistent with septic embolus and not a primary MRSA pneumonia. The patient should be considered to have infective endocarditis till this is confidently ruled out by a transesophageal echocardiogram. If the transesophageal echocardiogram is negative, the patient might need ultrasound of the internal jugular veins or venogram to rule out Lemierre's syndrome. In any case, the patient will likely require 4 to 6 weeks of therapy especially, in the absence of a definitive source of infection. The patient presented yesterday with lower extremity weakness and he was profoundly weak walking to the bathroom today. Although the CT scan did not reveal any epidural abscess I believe this needs to be ruled out with an MRI. The patient will require daily blood culture to be have the first negative culture. Based on the species and MACKENZIE the patient might require the addition of a second anti-staph antibiotic. Currently the patient is on vancomycin and piperacillin tazobactam. This can probably be switched to anti-staph coverage in a couple of days. Status: Acute (2) Cavitary lung disease: Given the presence of bilateral cavitary lung disease at different stages of development I do not believe this is primary lung malignancy rather evolving septic embolus. On the patient is better I will follow-up with him as outpatient and repeat a CT scan to make sure that there is no underlying malignancy as well. Status: Acute (3) Septic embolism: Please see above Thank you for the consultation! Status: Acute Coding Level of Care Code Acute Keyboard Action Assembler for [facility] Sari Diagnoses Staphylococcus aureus bacteremia R78.81; B95.61 Cavitary lung disease J98.4 Septic embolism I76
[2020-07-14] MEDS: enoxaparin 40 mg/0.4 mL Syringe SUBCUT (12:28)
[2020-07-14] MEDS: piperacillin-tazobactam 3.375 GM in sodium chloride 0.9% (plus) 50 ML IV ×2 (13:26→21:02)
[2020-07-14 17:14] LABS: Glucose Point of Care 260 mg/dL (70-110)
[2020-07-14] MEDS: sodium chloride 0.9% 1,000 ML 75 ML IV (18:02)
[2020-07-14 22:39] LABS: Glucose Point of Care 185 mg/dL (70-110)
[2020-07-15] VITALS (42 sets, daily range): BP systolic 81–120; BP diastolic 39–66; PULSE 94–116; RESP 9–28; TEMP 36.4–37.4; O2SAT 91–99; BMI 24.1
[2020-07-15 05:05] LABS: Basophils # 0.1 10^3/uL (0.0-0.1); Basophils % 0.5 %; Eosinophils % 0.1 %; Hematocrit 33.4 % (42.0-52.0); Hemoglobin 11.7 g/dL (11.7-16.6); Lymphocytes # 0.8 10^3/uL (0.8-4.8); Lymphocytes % 4.4 %; Mean Corpuscular Hemoglobin 34.6 pg (28.0-34.0); Mean Corpuscular Volume 98.8 fL (80-94); Mean Platelet Volume 12.4 fL (7.4-10.4); Monocytes # 1.6 10^3/uL (0.2-0.9); Monocytes % 8.3 %; Neutrophils # 15.71 10^3/uL (1.8-7.7); Nucleated Red Blood Cells % 0 %; Platelet Count 38 10^3/cmm (130-400); Red Blood Count 3.38 10^6/uL (4.1-5.3); Red Cell Distribution Width 12.6 % (12.1-15.1); White Blood Count 18.7 10^3/uL (4.0-10.0)
[2020-07-15 05:30] LABS: Alanine Aminotransferase 38 U/L (0-41); Albumin Level 1.8 g/dL (3.5-5.2); Alkaline Phosphatase 103 IU/L (40-130); Anion Gap 12.4 (5-19); Aspartate Amino Transferase 50 U/L (0-40); Blood Urea Nitrogen 30 mg/dL (8-23); Calcium 7.6 mg/dL (8.5-10.5); Carbon Dioxide 23 mmol/L (22-29); Chloride 101 mmol/L (98-107); Globulin 3.8 g/dL (1.3-4.6); Glomerular Filtration Rate 98.6 mL/min (90-130); Glucose 200 mg/dL (65-115); Osmolality Calculated 279 mOsm/kg (285-295); Potassium 3.4 mmol/L (3.5-5.1); Sodium 133 mmol/L (136-145); Total Bilirubin 0.9 mg/dL (0.15-1.2); Total Protein 5.6 g/dL (6.6-8.7)
[2020-07-15] MEDS: piperacillin-tazobactam 3.375 GM in sodium chloride 0.9% (plus) 50 ML IV ×2 (06:09→14:16)
[2020-07-15 06:42] LABS: Glucose Point of Care 191 mg/dL (70-110)
[2020-07-15 08:43] LABS: INR 1.49 (0.8-1.2)
[2020-07-15 08:44] LABS: Partial Thromboplastin Time 34.1 SECONDS (23.9-36.7)
[2020-07-15 09:02] LABS: D Dimer >= 20.00 ug/mIFEU (0-0.59)
[2020-07-15 09:10] LABS: Absolute Segmented Neutrophil 13.8 10/cmm (1.6-7.1); Band Neutrophils Absolute 3.9 10^3/cmm (0.0-1.2); Lymphocytes 2 %; Monocytes Absolute 0.6 10^3/cmm (0.1-0.6); Segmented Neutrophils 74 %; Total Cells Counted 100 (0-100)
[2020-07-15 09:11] LABS: Absolute Neutrophil 17.8 10^3/cmm (1.4-6.5); Platelet Estimate Decreased (Normal)
--- NOTE | 2020-07-15 10:14 | CT_ITS ---
WS: [id number] CT ABDOMEN PELVIS TECHNIQUE: Contrast-enhanced CT of the abdomen and pelvis with coronal and sagittal reformatted image s. CLINICAL INFORMATION: Sepsis/Bacteremia/Thrombocytopenia COMPARISON: None. DLP: 918.[address] scans at [facility] use at least one of these dose optimization techniques: automat ed exposure control; mA and/or kV adjustment per patient size (includes targeted exams where dose is matched to clinical indication); or iterative reconstruction. FINDINGS: Diffuse fatty infiltration of the liver. Liver size upper limits of normal. Enhancing vascular lesion in the left hepatic lobe with intrahepatic connection to the left portal vein and left hepatic vein consistent with intrahepatic portal venous shunt. Enhancing vascular lesion measures 3.3 x 2.2 CM. Heterogeneous enhancement involving the spleen with several nonspecific low-attenuation lesions too s mall to characterize.These also may represent small cysts or cavernous hemangiomas. More focal patchy enhancement in the superior aspect of the spleen suspicious for small infarcts. These are better vis ualized on the prior chest CT July 13, 2020. Mild splenomegaly measuring 14.9 cm [id number] Adrenal glands are normal. Heterogeneous striated parenchymal enhancement suspicious for pyelonephrit is involving both kidneys. Recommend correlation for UTI. No hydronephrosis. Bilateral renal cysts la rgest right lower pole measuring 5.3 x 4.1 cm. Normal GE junction. Small bilateral pleural effusions with compressive atelectasis and patchy infiltr ates in the lung bases. Interstitial thickening and edema in both lung bases. Pleural fluid has incre ased since July 13, 2020. Recommend correlation for pneumonia and CHF. Fatty atrophy of the pancreas. Normal gallbladder and visualized common bile duct. Normal caliber abd ominal aorta. Aortic calcification. Normal sigmoid colon. Small amount of free fluid in the pelvis. No evidence of small or large bowel o bstruction. No periaortic or inguinal lymphadenopathy. Normal lumbar spine. CT/CT abdomen pelvis w con* [id number] IMPRESSION: 1. Small bilateral pleural effusions with patchy infiltrates and compressive a telectasis in the lung bases new since July 13, 2020. Recommend correlation f or pneumonia. Interstitial edema in the lung bases likely due to CHF. 2. Mild hepatomegaly with diffuse fatty infiltration. 3. Intrahepatic portal venous shunt with enhancing vascular anomaly in left he patic lobe measuring 3.3 x 2.2 cm described above. 4. Several nonspecific low-attenuation lesions within the spleen. These could also represent small cysts or cavernous hemangiomas but too small to characteri ze. Largest lesion measures 1.7 CM at the inferior pole. Metastatic disease les s likely 5. More focal low-attenuation in the super aspect of the spleen suspicious for small infarcts. This is similar in appearance to 07/13/2020. Recommend interval follow-up with contrast-enhanced CT abdomen pelvis if persistent thrombocytope parth 6. Heterogeneous striated enhancement involving both kidneys suspicious for PY ELONEPHRITIS. Recommend correlation for UTI. No hydronephrosis. 7. Bilateral renal cysts largest in the right involving the inferior pole righ t kidney measuring 4.1 x 5.3 cm. 8. No abdominal or pelvic lymphadenopathy. 9. Small amount of free fluid in the pelvis. 10. Mild splenomegaly Notified Brina Mccoy DO at 07/15/2020 1:55 PM.
--- NOTE | 2020-07-15 10:15 | MR_ITS ---
WS: [id number] MRI THORACIC SPINE WITHOUT CONTRAST TECHNIQUE: Sagittal T1, T2 and STIR imaging. Axial T2 imaging. Images degraded by patient motion. CLINICAL INFORMATION: bacteremia, back and neck pain, LE weakness COMPARISON: None. FINDINGS: Limited examination due to patient motion. Normal thoracic alignment. No acute compression. No high-grade central canal stenosis. No evidence of discitis or osteomyelitis. Disc space heights and vertebral body heights well-preserved. Tiny disc p rotrusion in the mid thoracic spine at T7-T8 with slight contact of the thoracic cord. Moderate facet arthropathy lower thoracic spine. Normal caliber thoracic aorta. Partially visualized opacities in t he right lung described on the recent chest CT. MR/MR thoracic spin wo con* [id number] IMPRESSION: 1. Limited examination due to patient motion. 2. No evidence of discitis or osteomyelitis. Cord signal is normal. 3. No high-grade central canal stenosis. 4. Tiny left pericentral protrusion T7-T8 with slight contact of the thoracic cord. 5. No other significant findings.
--- NOTE | 2020-07-15 10:15 | MR_ITS ---
WS: [id number] MRI CERVICAL SPINE NONCONTRAST TECHNIQUE: Sagittal T1, T2 imaging. Axial T2 imaging. Limited examination due to patient motion. CLINICAL INFORMATION: bacteremia, back and neck pain, LE weakness COMPARISON: None. FINDINGS: Images somewhat degraded by patient motion with limited study Normal cervical alignment. No high-grade central canal stenosis. Cord signal is normal. Pulsation art ifact in the CSF. No evidence of discitis or osteomyelitis. Normal endplate bone marrow signal. C2-C3: Normal. C3-C4: Disc osteophytic ridging with moderate left bony foraminal narrowing. Spinal canal and foramen are patent. C4-C5: Mild left and no significant right foraminal narrowing. Mild facet arthropathy. Spinal canal i s patent. C5-C6: Mild disc osteophytic ridging. Mild left and no significant right foraminal narrowing. Mild fa cet arthropathy. Spinal canal is patent. C6-C7: Disc osteophyte complex with mild central canal stenosis. Mild left foraminal narrowing. C7-T1: Disc osteophyte complex eccentric to the left with mild to moderate left foraminal narrowing. Spinal canal and right foramen are patent. Visualized brain stem structures: Normal. Prevertebral soft tissues: Normal. MR/MR cervical spin wo con* [id number] IMPRESSION: 1. Incomplete examination due to patient motion and spiking fevers. 2. No evidence of discitis or osteomyelitis. Cord signal appears normal. 3. Mild central canal stenosis C6-7 due to disc osteophyte complex. 4. Mild to moderate foraminal narrowing worse at left C6-C7 and left C7-T1.
--- NOTE | 2020-07-15 10:30 | USCV_ITS ---
Nik Coello Age: 60 Gender: M : 1960 Exam Date: 07/15/2020 11:35 Ordering Phys: Brina Mccoy DO Technologist: Nii Emerson [place] [facility] [place]: ? JUGULAR THROMBUS HISTORY: Upper extremity swelling. PROCEDURES: Venous duplex imaging was performed in bilateral upper extremities. The following venous structures were evaluated: internal jugular vein, subclavian vein, axillary vein, and brachial veins. In addition, the basilic vein, cephalic vein, radial vein, and ulnar vein. FINDINGS: No evidence of deep vein thrombosis or superficial thrombophlebitis in the right upper extremity. No evidence of deep vein thrombosis or superficial thrombophlebitis in the left upper extremity. CONCLUSIONS No evidence of thrombus of the right upper extremity veins. No evidence of thrombus of the left upper extremity veins. Roque Swan MD (Electronically Signed) Final Date: 16 July 2020 09:55 S
[2020-07-15 10:44] LABS: Fibrinogen 398 mg/dL (174-498)
--- NOTE | 2020-07-15 11:17 | PM.CONSULT ---
Providers/Reason For Consult Consulting Physican/Specialty*: Dr. Herrera, Cardiology Reason for Consult*: Gram positive cocci bacteremia, MARISSA to evaluate for endocarditis Attending Physician: Brina Mccoy DO History of Present Illness History of Present Illness Nik Coello is a 60 year old male with past medical history of hypertension, poorly controlled diabetes, COPD, hyperlipidemia and vitamin D deficiency. The history was obtained from chart, patient and his brother. He seems drowsy, weak and confused at the time of evaluation. He came in with progressive weakness in bilateral lower extremities, back pain and tiredness. No prosthetic implants in his body or heart and no history of IV drug use. His brother mentioned that he was doing well until Monday morning and then progressively got worse over the weekend. His echocardiogram showed some fluttering near mitral valve,possible vegetation. His blood Cx grew MRSA. I have been asked to evaluate him for MARISSA. Review of Systems General: Reports: ROS unobtainable due to mental status Const: Reports: fatigue and malaise Card: Denies: chest pain, swelling of feet/ankles or orthopnea Resp: Denies: dyspnea or productive cough GI: Denies: dysphagia or hematochezia : Denies: hematuria Musc: Denies: extremity swelling Skin/Breast: Denies: rash Meds/Allergies Home Medications and Allergies Home Medications Medication Instructions Recorded Confirmed Last Taken Type amlodipine 2.5 mg tablet 2.5 mg PO DAILY 30 Days #30 tab 03/20/20 07/13/20 07/12/20 Rx hydrocodone 10 mg-acetaminophen 1 tab PO TID PRN 03/20/20 07/13/20 07/13/20 History 325 mg tablet lisinopril 40 mg tablet 40 mg PO DAILY 30 Days #30 tab 03/20/20 07/13/20 07/13/20 Rx sitagliptin 25 mg tablet 25 mg PO DAILY #30 tab 07/09/20 07/13/20 Unknown Rx aspirin [Aspir-81] 81 mg PO PRN 07/13/20 07/13/20 07/12/20 History 2 tabs metformin 500 mg tablet 500 - 1,000 mg PO DAILY PRN 30 07/13/20 07/13/20 07/13/20 Rx Days #60 tab 500 mg Allergies Allergy/AdvReac Type Severity Reaction Status Date / Time No Known Allergies Allergy Verified 07/13/20 10:29 Current Medications Current Medications Generic Name Dose Route Start Last Admin Trade Name Freq PRN Reason Stop Dose Admin Acetaminophen 650 mg 07/13/20 12:46 07/14/20 05:38 Tylenol PO 650 mg Q6H PRN Administration Mild/Mod Pain Or Temp >/= 101 Docusate Sodium 100 mg 07/13/20 18:00 07/14/20 17:04 Colace PO Not Given BID DAWNA Sodium Chloride 1,000 mls @ 75 mls/hr 07/13/20 13:00 07/14/20 18:02 Sodium Chloride 0.9% IV 75 mls/hr .[id number] DAWNA Administration Vancomycin HCl 1,250 mg/ 250 mls @ 200 mls/hr 07/14/20 11:00 07/14/20 23:43 Sodium Chloride IV 200 mls/hr Q12H DAWNA Administration Protocol Piperacillin Sod/Tazobactam 50 mls @ 12.5 mls/hr 07/14/20 11:00 07/15/20 06:09 Sod 3.375 gm/ Sodium Chloride IV 12.5 mls/hr Q8H DAWNA Administration Insulin Aspart 0 unit 07/13/20 21:00 07/14/20 21:02 Novolog SUBCUT 3 unit BEDTIME DAWNA Administration Protocol Insulin Aspart 0 unit 07/13/20 18:00 07/15/20 08:34 Novolog SUBCUT Not Given TIDWM DAWNA Protocol PFSH Acute PFSH: Medical History COPD (chronic obstructive pulmonary disease) Diabetes Essential hypertension Mixed hyperlipidemia Vitamin D deficiency Surgical History History of colonoscopy Family History Mother CAD (coronary artery disease) Diabetes Cirrhosis Father CAD (coronary artery disease) Social History Smoking and tobacco status: former smoker Second hand smoke exposure: No Alcohol intake: current Desire information about alcohol rehabilitation?: No Counseling given: No Substance/Drug Use: never Vitals/I&O/Wt Last Vital Signs Temp 98.0 F 07/15/20 08:00 Pulse 107 H 07/15/20 08:00 Resp 14 07/15/20 08:00 BP 105/55 07/15/20 08:00 Pulse Ox 94 07/15/20 07:49 07/14/20 07/15/20 07/15/20 22:59 06:59 14:59 Intake Total 2019 110 0 Balance 2019 110 0 Weight last 48 hrs Weight 159 lb Weight 159 lb Weight 159 lb Physical Exam Const: COMMON NORMALS: average body habitus and well nourished EXAM LIMITATIONS: altered mental status GENERAL APPEARANCE: lethargic and ill appearing ORIENTATION/CONSCIOUSNESS: Yes lethargic HENMT: COMMON NORMALS: normocephalic, atraumatic and hearing grossly normal bilaterally HEAD & SCALP: normocephalic and atraumatic TEETH & GINGIVA: Yes poor dentition Eye: COMMON NORMALS: Equal, round and reactive pupils present, EOMs intact bilaterally and conjunctivae normal CONJUNCTIVA: Yes conjunctivae normal SCLERA: sclerae normal PUPIL: Yes Equal, round and reactive pupils present Neck/C-Spine: COMMON NORMALS: supple and no JVD; negative for No carotid bruits Resp: COMMON NORMALS: normal respiratory effort, No use of accessory muscles and clear to auscultation bilaterally AUSCULTATION: clear to auscultation bilaterally, no crackles, no rales, no rhonchi and no wheezes Cardio: COMMON NORMALS: no JVD, regular rate, regular rhythm, S1 normal heart sound present, S2 normal heart sound present and Peripheral pulses 2+ throughout JUGULAR VENOUS DISTENTION: no JVD PALPATION: normal PMI, no heave, no palpable S3 and no thrill RATE: regular rate RHYTHM: regular rhythm HEART SOUNDS: S1 normal heart sound present, S2 normal heart sound present, no gallops and no murmurs BRUITS: no carotid bruits PERIPHERAL PULSES: Peripheral pulses 2+ throughout GI: COMMON NORMALS: Normal to inspection, nondistended, normoactive bowel sounds present, Soft to palpation and non-tender PALPATION: Yes Soft to palpation Neuro: SENSORIUM/ORIENTATION: Yes lethargic Data Labs: Other Labs: Laboratory Tests 07/13/20 07/13/20 07/13/20 10:15 10:15 10:18 WBC 23.9 H INR Fibrinogen Fibrin Degrad Prod ucts D-Dimer BUN 47 H Creatinine 1.0 Hemoglobin A1c 7.7 H AST 97 H ALT 53 H Alkaline Phosphata se 138 H 07/14/20 07/15/20 04:10 04:45 WBC 22.5 H INR 1.49 H Fibrinogen 398 Fibrin Degrad Prod ucts Pos, 10-40 H D-Dimer >= 20.00 H BUN Creatinine Hemoglobin A1c AST ALT Alkaline Phosphata se Micro: Micro: Microbiology 07/14/20 10:34 Blood Culture - Pr eliminary Blood Gram positive c occi 07/14/20 10:45 Blood Culture - Pr eliminary Blood Gram positive c occi 07/13/20 11:32 Blood Culture - Pr eliminary Blood Gram positive c occi 07/13/20 10:15 Blood Culture - Pr eliminary Blood Gram positive c occi 07/13/20 10:20 Urine Culture - Pr eliminary Urine,Clean Catch Staphylococcus aureus Imaging^: CT Chest: Radiologist's impression: (07/13/2020) FINDINGS: Lungs: There is a 3.2 x 2.5 cm pleural based mass in the right upper lobe of the lung as seen on sagittal image 54. There is internal gas. No associated calcification. There is an adjacent 0.7 cm nodule in the right upper lobe on series 2, image 19 and a 1.3 cm nodule in the anterior right upper lobe on image 24. There are nodules in the right middle lobe on series 2, images 39 and 40 measuring less than a cm in size. There is a 1.3 cm nodule in the left upper lobe with internal cavitation on series 2, image 22 and a 0.3 cm nodule in the left lower lobe on image 34. There is a calcified granuloma in the right middle lobe of the lung. Pleural space: Unremarkable. No pneumothorax. No pleural effusion. Heart: Unremarkable. No cardiomegaly. No pericardial effusion. Mediastinal space: There are right paratracheal and subcarinal mediastinal calcifications. Aorta: Unremarkable. No aortic aneurysm. Lymph nodes: Unremarkable. No enlarged lymph nodes. Adrenals: There is thickening of the left adrenal gland. Bones/joints: Unremarkable. No acute fracture. Soft tissues: Unremarkable. IMPRESSION: There is a pleural based mass in the right upper lobe of the lung with internal cavitation. Other nodules are identified in the bilateral lungs. Findings are suspicious for malignancy with multifocal metastatic nodules.If there is desire for further evaluation, a PET scan or biopsy could be performed. Echo: Radiologist's impression: (07/14/20) CONCLUSIONS LV systolic function is normal with EF of 60 to 65%. Normal diastolic function. There is a fluttering structure in proximity to mitral valve. This could represent subvalvular apparatus/chordae however cannot rule out vegetation. If clinical suspicion of endocarditis is present, will recommend performing transesophageal echocardiogram. Other Data: Other data: CT scan of the thoracic and lumbar spine and there is no evidence of epidural abscess. His CT scan of the head also did not reveal any prove for metastatic abscess or infection. Chest x-ray revealed right upper lung zone infiltrate. EKG showed SINUS TACHYCARDIA POSSIBLE LEFT ATRIAL ENLARGEMENT [-0.1mV P WAVE IN V1/V2] INCOMPLETE RIGHT BUNDLE BRANCH BLOCK SEPTAL MYOCARDIAL INFARCTION, PROBABLY OLD CT scan abdomen and pelvis (07/15/20) IMPRESSION: 1. Small bilateral pleural effusions with patchy infiltrates and compressive atelectasis in the lung bases new since July 13, 2020. Recommend correlation for pneumonia. Interstitial edema in the lung bases likely due to CHF. 2. Mild hepatomegaly with diffuse fatty infiltration. 3. Intrahepatic portal venous shunt with enhancing vascular anomaly in left hepatic lobe measuring 3.3 x 2.2 cm described above. 4. Several nonspecific low-attenuation lesions within the spleen. These could also represent small cysts or cavernous hemangiomas but too small to characterize. Largest lesion measures 1.7 CM at the inferior pole. Metastatic disease less likely 5. More focal low-attenuation in the super aspect of the spleen suspicious for small infarcts. This is similar in appearance to 07/13/2020. Recommend interval follow-up with contrast-enhanced CT abdomen pelvis if persistent thrombocytopenia 6. Heterogeneous striated enhancement involving both kidneys suspicious for PYELONEPHRITIS. Recommend correlation for UTI. No hydronephrosis. 7. Bilateral renal cysts largest in the right involving the inferior pole right kidney measuring 4.1 x 5.3 cm. 8. No abdominal or pelvic lymphadenopathy. 9. Small amount of free fluid in the pelvis. 10. Mild splenomegaly A&P Assessment and plan (1) Sepsis: Status: Acute Qualifiers: Sepsis type: methicillin resistant Staphylococcus aureus Sepsis acute organ dysfunction status: with acute organ dysfunction Severe sepsis acute organ dysfunction type: encephalopathy (2) Staphylococcus aureus bacteremia: Unclear source. On broad spectrum antibiotics. -Plan for MARISSA tomorrow based on platelet count. Status: Acute (3) Cavitary lung disease: Concern for septic emboli Status: Acute (4) Diabetes: Status: Acute Additional A&P Information Hyponatremia Hypotension : transfered to unit. responded to IV fluids Thrombocytopenia Transaminitis Alcohol abuse h/o hypertension Hyperlipidemia Coding Level of Care Code Acute Communications Systems Engineer for Chg Fwd Diagnoses Sepsis A41.9 Sepsis type: methicillin resistant Staphylococcus aureus Sepsis acute organ dysfunction status: with acute organ dysfunction Severe sepsis acute organ dysfunction type: encephalopathy Staphylococcus aureus bacteremia R78.81; B95.61 Cavitary lung disease J98.4 Diabetes E11.9
[2020-07-15] MEDS: morphine 4 mg/mL SDV 1 mL 2 MG IVP (11:33)
[2020-07-15 11:34] LABS: Glucose Point of Care 186 mg/dL (70-110)
[2020-07-15 11:34] LABS: Vancomycin Trough 13.5 ug/mL (10-15)
--- NOTE | 2020-07-15 11:35 | P.PN_ITS ---
Subjective Subjective: Interval history: Patient was seen and evaluated early this morning. He reported that he continued to feel weak, decreased appetite. Patient denied any abdominal pain. Reported some continued weakness in his legs, reported that he was able to move his left leg slightly more. Patient reports that he slept better overnight. Discussed with patient and he did not have any chest pain or shortness of breath. Discussed with him concern for bacteremia, plan for MRI of his back as well as need for long-term IV antibiotics. Patient verbalized understanding and agreed with plan Called and discussed with patient's brother, Greg, after receiving patient's blessing. Greg noted understanding of his acute condition and need for further hospitalization and care. He reported that patient did not tell the truth on admission about his alcohol intake. He stated that he will typically have 8-12 beers per day, sometimes more. Patient has been gradually declining over the past several weeks. Discussed with Greg about patient being very ill, he verbalizes understanding. This conversation took place on 07/15/2020 at approximately 11:30 AM Vitals/I&O/Wt Last Vital Signs Temp 99.1 F 07/15/20 11:28 Pulse 116 H 07/15/20 11:28 Resp 16 07/15/20 11:28 BP 118/57 07/15/20 11:28 Pulse Ox 96 07/15/20 11:28 07/14/20 07/15/20 07/15/20 22:59 06:59 14:59 Intake Total 2019 110 / 2130 Balance 2019 110 / 2130 Weight last 48 hrs Weight 72.121 kg Weight 72.121 kg Weight 72.121 kg Physical Exam Const: COMMON NORMALS: patient oriented x3 and alert GENERAL APPEARANCE: cooperative and frail appearing NUTRITIONAL APPEARANCE: thin O RIENTATION/CONSCIOUSNESS: Yes awake, Yes oriented to person, Yes oriented to place and Yes oriented to time HENMT: COMMON NORMALS: normocephalic and atraumatic HEAD & SCALP: normocephalic and atraumatic Eye: COMMON NORMALS: Equal, round and reactive pupils present PUPIL: Yes Equal, round and reactive pupils present Neck/C-Spine: COMMON NORMALS: supple GENERAL: Yes normal visual inspection Resp: COMMON NORMALS: normal respiratory effort and clear to auscultation bilaterally EFFORT & INSPECTION: Yes able to speak in complete sentences AUSCULTATION: clear to auscultation bilaterally, no rhonchi and no wheezes Cardio: COMMON NORMALS: regular rhythm RATE: tachycardic RHYTHM: regular rhythm OTHER: Faint systolic murmur GI: COMMON NORMALS: Soft to palpation INSPECTION: No abdominal distension AUSCULTATION: Yes normoactive bowel sounds PALPATION: Yes Soft to palpation OTHER: No tenderness to palpation today : COMMON NORMALS: Yes no CVA tenderness BLADDER/KIDNEY EXAM: Yes no CVA tenderness Back/Pelvis: COMMON NORMALS: no CVA tenderness Extremity: COMMON NORMALS: no clubbing, cyanosis or edema and no calf tend erness Neuro: COMMON NORMALS: patient oriented x3, CN's II-XII intact bilaterally and no focal motor deficits SENSORIUM/ORIENTATION: Yes alert, Yes oriented to person, Yes oriented to place and Yes oriented to time SPEECH: speech normal OTHER: Normal sensation in the lower extremities bilaterally, normal movement of the left upper extremity, chronic contracture in the right upper extremity Difficulty raising the leg with straight leg raise on the left due to pain but does move the L foot for dorsiflexion and plantar flexion No saddle anesthesia, no incontinence of bowel or bladder Psych: COMMON NORMALS: mental status grossly normal and cooperative Skin: COMMON NORMALS: no rashes or lesions noted GENERAL SKIN EXAM: no rashes or lesions noted Data : 07/15/20 04:45 07/15/20 04:45 Micro: Microbiology 07/14/20 10:34 Blood Culture - Preliminary Blood Gram positive cocci 07/14/20 10:45 Blood Culture - Preliminary Blood Gram positive cocci 07/13/20 11:32 Blood Culture - Preliminary Blood Gram positive cocci 07/13/20 10:15 Blood Culture - Preliminary Blood Gram positive cocci 07/13/20 10:20 Urine Culture - Preliminary Urine,Clean Catch Staphylococcus aureus A&P Assessment and plan (1) Sepsis: Secondary to bacteremia Urine and blood now showing staph aureus, broadened antibiotic coverage with IV vancomycin and Zosyn Hold home antihypertensives Obtaining further imaging studies including MRI of the spine and CT scan of the abdomen and pelvis Status: Acute (2) Cystitis: Urine culture showing staph aureus Concern for MSSA or MRSA bacteremia, awaiting further culture results. Broadened antibiotic coverage to IV vancomycin and Zosyn Status: Acute (3) Acute hyponatremia: Improved, also believed to be chronic in nature after finding out that patient drinks beer daily Status: Acute (4) Essential hypertension: Hold home amlodipine and lisinopril Status: Acute (5) Diabetes: Hold metformin due to lactic acidosis Place on moderate dose sliding scale insulin Status: Acute Additional A&P Information Staph aureus bacteremia: Repeat blood cultures ordered today, continue on v ancomycin and Zosyn. MRI of the spine today. CT scan of the abdomen and pelvis ordered for today. Discussed with Dr. Herrera for consultation for MARISSA due to concern for bacterial endocarditis. Thrombocytopenia: Platelet count has decreased since admission, holding Lovenox, DIC panel ordered, splenic imaging ordered with CT scan. Manual differential added. Also concern for cirrhosis with underlying alcoholism which could be contributing Lung lesion: Discussed with Dr. Woo in consultation, will hold off on biopsy at this time and continue to treat infectious process. Repeat CT scan following discharge with further management at that time as indicated. Discussed with patient question of infectious versus metastatic disease Generalized malaise and weakness: PT and OT ordered, CT scan of the lumbar and thoracic spine ordered. MRI ordered for further evaluation today Thrombocytopenia: Likely secondary to sepsis Elevated AST and ALT, appears to be chronic in nature, hepatitis panel is negative. Now reported from family due to have strong history of alcohol use. Approximately 12 or more beers per day Alcoholism: Reported approximately 12 beers per day, monitor closely on CIWA protocol with Ativan Hypoalbuminemia with malnutrition: Nutrition consult placed Hematuria: Due to UTI we will continue to monitor closely with consideration of renal ultrasound if indicated DVT prophylaxis: SCDs, Lovenox held due to thrombocytopenia Diet: Regular diet, added Ensure shakes CODE STATUS: DNR/DNI, discussed with patient at time of exam and his brother was at bedside during discussion Updated patient's brother Greg today by phone, made him aware of clinical condition and current treatment. He verbalized understanding and agreed with plan. Attestations Medical Necessity Statement*: Patient requires further hospitalization due to sepsis, staph aureus bacteremia, concern for endocarditis, generalized weakness and fatigue, thrombocytopenia Coding Level of Care Code Acute Water Purifier Operator for g Fwd Diagnoses Sepsis A41.9 Cystitis N30.90 Acute hyponatremia E87.1 Essential hypertension I10 Diabetes E11.9
[2020-07-15] MEDS: acetaminophen 325 mg Tablet 650 MG PO (11:38)
--- NOTE | 2020-07-15 11:59 | ECG_ITS ---
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 Measurements Intervals [place] Rate: 104 P: 56 NV: 151 QRS: 18 QRSD: 102 T: 69 QT: 351 QTc: 462 Interpretive Statements SINUS TACHYCARDIA POSSIBLE LEFT ATRIAL ENLARGEMENT [-0.1mV P WAVE IN V1/V2] INCOMPLETE RIGHT BUNDLE BRANCH BLOCK [90+ ms QRS DURATION, TERMINAL R IN V1/V2, 40+ ms S IN I/aVL/V4/V5/V6] SEPTAL MYOCARDIAL INFARCTION [40+ ms Q WAVE IN V1/V2], PROBABLY OLD Compared to ECG 07/13/2020 10:13:10 Incomplete right bundle-branch block now present Myocardial infarct finding still present Electronically Signed On 07-15-2020 18:08:28 CDT by Raphael Thorne M.D. [id number]
[2020-07-15] MEDS: sodium chloride 0.9% 1,000 ML 75 ML IV ×2 (12:22→22:32)
[2020-07-15] MEDS: iohexol 300 mg/mL 100 mL Btl IV (13:38)
[2020-07-15] MEDS: iohexol 300 mg/mL 50 mL Btl PO (13:39)
--- NOTE | 2020-07-15 15:41 | PC.NURSE ---
I reported the low bp 86/44 to the nurse Gail. we turned the patient around a bit.85/42
[2020-07-15] MEDS: sodium chloride 0.9% 500 ML 999 ML IV ×3 (16:51→18:17)
[2020-07-15 16:53] LABS: Glucose Point of Care 201 mg/dL (70-110)
--- NOTE | 2020-07-15 17:00 | PC.NURSE ---
1600 patient less alert, skin clammy. patient b/p is 86/44. rechecked b/p after repositioning him and changing a wet brief was 85/42 . BS was 201. hr 99. SR. patients 02 sat was 93 and shallow, rate 22. 02 at 2 l placed on patient per NC. called dr. chau and rec order to bolus patient with ns 500mls now, place doss cath. doss cath was placed per power generation technician. had 500 mls of dark candie urine out from cath. dr. beatty ordered for patient to be moved to higher level of care, to ICU bed. patient's brother was notified of the transfer. report given to Kelly in ICU and patient was transfer to ice by bed and oxygen per NC at 2l. Opitfoam to patients left buttock was still intact.
[2020-07-15 17:43] LABS: Glucose Point of Care 205 mg/dL (70-110)
--- NOTE | 2020-07-15 18:24 | PC.NURSE ---
Pt arrived to ICU room 10 at around 1600. Report received from Gail. Pt lethargic but arouses easily and answers questions. Oriented to self and location only; he does not know which town he is in. Lung sounds clear. Pulses regular and palpable. 2L/min oxygen per nasal cannula in place. Pratt catheter in place, with dark candie urine which is slightly blood tinged. Dr. Mccoy contacted regarding persistent hypotension after each NS bolus. She also advised to utilize the NICOM monitor to do a passive leg raise, which was completed, and she was notified of the results. See orders. Initial NICOM readings at 16:30 were: HR = 96 SVI = 48 CI = 4.6 TPRI = 900 SVI change after passive leg raise (PLR): +19.8% NICOM readings as of 18:15 were: HR = 95 SVI = 50 CI = 4.7 TPRI = 983
[2020-07-15 19:40] LABS: Lactic Sepsis W/Reflex 2.5 mmol/L (0.5-2.2)
[2020-07-15 20:38] LABS: Glucose Point of Care 166 mg/dL (70-110)
[2020-07-15 20:52] LABS: Reflex Lactate Order REFLEX LACTIC ORDERD
[2020-07-15 22:21] LABS: Lactic Acid level (Lactate) 2.7 mmol/L (0.5-2.2)
[2020-07-16] VITALS (44 sets, daily range): BP systolic 98–129; BP diastolic 41–54; PULSE 90–115; RESP 16–30; TEMP 36.3–38.3; O2SAT 92–97
[2020-07-16] MEDS: morphine 4 mg/mL SDV 1 mL 2 MG IVP ×2 (02:15→05:32)
[2020-07-16] MEDS: piperacillin-tazobactam 3.375 GM in sodium chloride 0.9% (plus) 50 ML IV ×3 (02:15→20:05)
[2020-07-16] MEDS: acetaminophen 325 mg Tablet 650 MG PO (02:38)
[2020-07-16 05:41] LABS: Basophils # 0.1 10^3/uL (0.0-0.1); Basophils % 0.5 %; Eosinophils % 0.2 %; Hematocrit 33.7 % (42.0-52.0); Hemoglobin 11.4 g/dL (11.7-16.6); Lymphocytes # 1.5 10^3/uL (0.8-4.8); Mean Corpuscular HGB Conc 33.8 g/dL (30.0-36.0); Mean Corpuscular Hemoglobin 33.9 pg (28.0-34.0); Mean Corpuscular Volume 100.3 fL (80-94); Mean Platelet Volume 12.8 fL (7.4-10.4); Monocytes # 2.3 10^3/uL (0.2-0.9); Neutrophils # 20.64 10^3/uL (1.8-7.7); Neutrophils % 81.1 %; Nucleated Red Blood Cells % 0 %; Platelet Count 44 10^3/cmm (130-400); Red Blood Count 3.36 10^6/uL (4.1-5.3); White Blood Count 25.4 10^3/uL (4.0-10.0)
[2020-07-16 05:52] LABS: Alanine Aminotransferase 30 U/L (0-41); Albumin Level 1.8 g/dL (3.5-5.2); Alkaline Phosphatase 95 IU/L (40-130); Anion Gap 16.6 (5-19); Aspartate Amino Transferase 48 U/L (0-40); Blood Urea Nitrogen 62 mg/dL (8-23); Calcium 7.1 mg/dL (8.5-10.5); Carbon Dioxide 18 mmol/L (22-29); Chloride 105 mmol/L (98-107); Globulin 4.5 g/dL (1.3-4.6); Glomerular Filtration Rate 61.8 mL/min (90-130); Glucose 232 mg/dL (65-115); Osmolality Calculated 288 mOsm/kg (285-295); Potassium 3.6 mmol/L (3.5-5.1); Sodium 136 mmol/L (136-145); Total Bilirubin 1.2 mg/dL (0.15-1.2); Total Protein 6.3 g/dL (6.6-8.7)
[2020-07-16 05:53] LABS: Slide Review Slide Review Perform
[2020-07-16 08:43] LABS: Glucose Point of Care 212 mg/dL (70-110)
--- NOTE | 2020-07-16 08:50 | PC.SOCIAL ---
IMM Page 2 of IMM explained to patient. Initialed, dated, and timed and placed in chart. Copy provided to patient.
[2020-07-16 08:51] LABS: LAB Peripheral Smear Sent for Review
[2020-07-16] MEDS: folic acid 1 mg Tablet PO (08:51)
[2020-07-16] MEDS: docusate sodium 100 mg Capsule PO ×2 (08:51→18:04)
[2020-07-16] MEDS: thiamine 100 mg Tablet PO (08:51)
[2020-07-16] MEDS: multivitamin therapeutic Tablet 1 TAB PO (08:51)
[2020-07-16 08:55] LABS: INR 1.63 (0.8-1.2)
[2020-07-16 09:01] LABS: HIV 1 & 2 Antibody Non-Reactive (Non-Reactiv); HIV 1 & 2 Antigen Non-Reactive (Non-Reactiv)
--- NOTE | 2020-07-16 09:14 | PC.NURSE ---
Yefri passive leg raise performed, stoke volume index 17.7%, Dr. Lipscomb notified gave T.O. to bolus 500 ml LR
[2020-07-16] MEDS: lactated ringers 500 ML 999 ML IV (09:31)
[2020-07-16 09:34] LABS: C Reactive Protein 128.8 mg/L (0.0-4.9); Lactate Dehydrogenase 417 U/L (135-225); Procalcitonin 3.92 ng/mL (0-0.5)
[2020-07-16 09:49] LABS: Lactic Sepsis W/Reflex 2.4 mmol/L (0.5-2.2)
[2020-07-16] MEDS: sodium chloride 0.9% 1,000 ML 75 ML IV ×2 (11:01→21:22)
[2020-07-16 11:17] LABS: Reflex Lactate Order REFLEX LACTIC ORDERD
[2020-07-16 12:17] LABS: Glucose Point of Care 182 mg/dL (70-110)
--- NOTE | 2020-07-16 12:32 | PM.PN ---
Subjective Subjective: Interval history: Patient is answering questions appropriately and even cracked a joke. Denies any CP, SOB and was laying flat at the time of exam. His levophed was just turned off after fluid bolus. Short run of AT on Medications: Reviewed: Yes Medication Review Details: Current Medications Acetaminophen (Tylenol) 650 mg PO Q6H PRN PRN Reason: Mild/Mod Pain Or Temp >/= 101 Last Admin: 07/16/20 02:38 Dose: 650 mg Documented by: Hydrocodone Bitart/Acetaminophen ([place] 10-325 Mg) 1 tab PO TID PRN PRN Reason: Pain Aspirin (Aspirin Ec) 81 mg PO PRN DAWNA Dextrose (D50w) 25 ml IVP ONCE PRN; Protocol PRN Reason: hypoglycemia protocol Dextrose (D50w) 50 ml IVP PRN PRN; Protocol PRN Reason: hypoglycemia protocol Docusate Sodium (Colace) 100 mg PO BID [facility] Last Admin: 07/16/20 08:51 Dose: 100 mg Documented by: Folic Acid (Folic Acid) 1 mg PO DAILY [facility] Last Admin: 07/16/20 08:51 Dose: 1 mg Documented by: Glucagon (Glucagen) 1 mg IM ONCE PRN; Protocol PRN Reason: Adult Acute Hypoglycemia Prot. Sodium Chloride (Sodium Chloride 0.9%) 1,000 mls @ 75 mls/hr IV .[id number] [facility] Last Admin: 07/16/20 11:01 Dose: 75 mls/hr Documented by: Dextrose (D5w) 500 mls @ 100 mls/hr IV ONCE PRN; Protocol PRN Reason: Adult Acute Hypoglycemia Prot Vancomycin HCl 1,250 mg/ (Sodium Chloride) 250 mls @ 200 mls/hr IV Q12H [facility]; Protocol Last Admin: 07/16/20 11:26 Dose: 200 mls/hr Documented by: Piperacillin Sod/Tazobactam (Sod 3.375 gm/ Sodium Chloride) 50 mls @ 12.5 mls/hr IV Q8H [facility] Last Infusion: 07/16/20 07:30 Dose: 0 mls/hr Documented by: Norepinephrine Bitartrate 4 mg (/ Dextrose) 254 mls @ 0 mls/hr IV .Q0M DAWNA; Protocol Last Titration: 07/16/20 05:35 Dose: 22.5 mls/hr, 22.5 mls/hr Documented by: Insulin Aspart (Novolog) 0 unit SUBCUT BEDTIME [facility]; Protocol Last Admin: 07/15/20 20:28 Dose: 2 unit Documented by: Insulin Aspart (Novolog) 0 unit SUBCUT TIDWM [facility]; Protocol Last Admin: 07/16/20 08:51 Dose: 6 unit Documented by: Insulin Detemir (Levemir) 5 unit SUBCUT DAILY [facility] Last Admin: 07/16/20 08:52 Dose: 5 unit Documented by: Lorazepam (Ativan) 2 mg IM PROTOCOL PRN; Protocol PRN Reason: ALCOWD Lorazepam (Ativan) 2 mg PO PROTOCOL PRN; Protocol PRN Reason: WITHDRAWAL Morphine Sulfate (Morphine) 2 mg IVP Q4H PRN PRN Reason: SEVERE PAIN Last Admin: 07/16/20 05:32 Dose: 2 mg Documented by: Multivitamins Therapeutic (Multivitamin Tab) 1 tab PO DAILY [facility] Last Admin: 07/16/20 08:51 Dose: 1 tab Documented by: Naloxone HCl (Narcan) 0.1 mg IVP Q2M PRN PRN Reason: OPIATERV Ondansetron HCl (Zofran) 4 mg IVP Q8H PRN PRN Reason: vomiting, or N/V if npo Ondansetron HCl (Zofran) 4 mg IVP Q6H PRN PRN Reason: NAUSEA AND VOMITING Thiamine Mononitrate (Vitamin B-1) 100 mg PO DAILY [facility] Last Admin: 07/16/20 08:51 Dose: 100 mg Documented by: Vitals/I&O/Wt Last Vital Signs Temp 99.0 F 07/16/20 06:00 Pulse 104 H 07/16/20 09:00 Resp 19 H 07/16/20 09:00 BP 120/54 07/16/20 09:00 Pulse Ox 95 07/16/20 09:00 07/15/20 07/16/20 07/16/20 22:59 06:59 14:59 Intake Total 1085.298 / 2135.298 410.084 / 2545.382 936.25 / 936.25 Output Total 175 / 175 300 / 475 Balance 910.298 / 1960.298 110.084 / 2070.382 936.25 / 936.25 Weight last 48 hrs Weight 157 lb 9.6 oz Weight 159 lb Weight 159 lb Physical Exam Const: COMMON NORMALS: average body habitus EXAM LIMITATIONS: altered mental status GENERAL APPEARANCE: lethargic and ill appearing ORIENTATION/CONSCIOUSNESS: Yes lethargic HENMT: COMMON NORMALS: normocephalic, atraumatic and hearing grossly normal bilaterally HEAD & SCALP: normocephalic and atraumatic TEETH & GINGIVA: Yes poor dentition and Yes teeth discoloration Eye: COMMON NORMALS: Equal, round and reactive pupils present, EOMs intact bilaterally and conjunctivae normal CONJUNCTIVA: Yes conjunctivae normal SCLERA: sclerae normal PUPIL: Yes Equal, round and reactive pupils present Neck/C-Spine: COMMON NORMALS: supple and no JVD; negative for No carotid bruits Resp: COMMON NORMALS: normal respiratory effort, No use of accessory muscles and clear to auscultation bilaterally (anterior lung crow) AUSCULTATION: clear to auscultation bilaterally (anterior lung crow), no crackles, no rales, no rhonchi and no wheezes Cardio: COMMON NORMALS: no JVD, regular rate, regular rhythm, S1 normal heart sound present, S2 normal heart sound present and Peripheral pulses 2+ throughout JUGULAR VENOUS DISTENTION: no JVD PALPATION: normal PMI, no heave, no palpable S3 and no thrill RATE: regular rate RHYTHM: regular rhythm HEART SOUNDS: S1 normal heart sound present, S2 normal heart sound present, no gallops and no murmurs BRUITS: no carotid bruits PERIPHERAL PULSES: Peripheral pulses 2+ throughout GI: COMMON NORMALS: Normal to inspection, nondistended, normoactive bowel sounds present, Soft to palpation and non-tender PALPATION: Yes Soft to palpation Neuro: SENSORIUM/ORIENTATION: Yes lethargic Data : 07/17/20 03:43 07/17/20 03:43 Micro: Microbiology 07/15/20 13:00 Blood Culture - Preliminary Blood Gram positive cocci 07/15/20 12:55 Blood Culture - Preliminary Blood Gram positive cocci 07/14/20 10:34 Blood Culture - Preliminary Blood Gram positive cocci 07/14/20 10:45 Blood Culture - Preliminary Blood Gram positive cocci 07/13/20 10:15 Blood Culture - Preliminary Blood Staphylococcus aureus 07/13/20 11:32 Blood Culture - Preliminary Blood Staphylococcus aureus 07/13/20 10:20 Urine Culture - Final Urine,Clean Catch Methicillin Resis Staph Aureus 07/14/20 23:54 MRSA Culture - Final Nose CT Abd/Pel: Radiologist's impression: FINDINGS: Diffuse fatty infiltration of the liver. Liver size upper limits of normal. Enhancing vascular lesion in the left hepatic lobe with intrahepatic connection to the left portal vein and left hepatic vein consistent with intrahepatic portal venous shunt. Enhancing vascular lesion measures 3.3 x 2.2 CM. Heterogeneous enhancement involving the spleen with several nonspecific low-attenuation lesions too small to characterize.These also may represent small cysts or cavernous hemangiomas. More focal patchy enhancement in the superior aspect of the spleen suspicious for small infarcts. These are better visualized on the prior chest CT July 13, 2020. Mild splenomegaly measuring 14.9 cm [id number] Adrenal glands are normal. Heterogeneous striated parenchymal enhancement suspicious for pyelonephritis involving both kidneys. Recommend correlation for UTI. No hydronephrosis. Bilateral renal cysts largest right lower pole measuring 5.3 x 4.1 cm. Normal GE junction. Small bilateral pleural effusions with compressive atelectasis and patchy infiltrates in the lung bases. Interstitial thickening and edema in both lung bases. Pleural fluid has increased since July 13, 2020. Recommend correlation for pneumonia and CHF. Fatty atrophy of the pancreas. Normal gallbladder and visualized common bile duct. Normal caliber abdominal aorta. Aortic calcification. Normal sigmoid colon. Small amount of free fluid in the pelvis. No evidence of small or large bowel obstruction. No periaortic or inguinal lymphadenopathy. Normal lumbar spine. CT/CT abdomen pelvis w con* [id number] IMPRESSION: 1. Small bilateral pleural effusions with patchy infiltrates and compressive atelectasis in the lung bases new since July 13, 2020. Recommend correlation for pneumonia. Interstitial edema in the lung bases likely due to CHF. 2. Mild hepatomegaly with diffuse fatty infiltration. 3. Intrahepatic portal venous shunt with enhancing vascular anomaly in left hepatic lobe measuring 3.3 x 2.2 cm described above. 4. Several nonspecific low-attenuation lesions within the spleen. These could also represent small cysts or cavernous hemangiomas but too small to characterize. Largest lesion measures 1.7 CM at the inferior pole. Metastatic disease less likely 5. More focal low-attenuation in the super aspect of the spleen suspicious for small infarcts. This is similar in appearance to 07/13/2020. Recommend interval follow-up with contrast-enhanced CT abdomen pelvis if persistent thrombocytopenia 6. Heterogeneous striated enhancement involving both kidneys suspicious for PYELONEPHRITIS. Recommend correlation for UTI. No hydronephrosis. 7. Bilateral renal cysts largest in the right involving the inferior pole right kidney measuring 4.1 x 5.3 cm. 8. No abdominal or pelvic lymphadenopathy. 9. Small amount of free fluid in the pelvis. 10. Mild splenomegaly A&P Assessment and plan (1) Infective endocarditis: Large elongated mass with independent motion seen attached to left ventricular outflow tract below aortic valves. Globular thickening noted on left and non coronary cusps of aortic valve as well. These finding are suggestive of infective endocarditis. Severe aortic valve regurgitation. These findings were discussed with patient's brother Greg and his . Images were reviewed with Dr. Butts and his consult was requested. There was a detailed discussion with Dr. Marquez and the family informing them of critical situation of the patient and high risk of operative mortality. Patient's brother Greg and his expressed their understanding of the situation. They decided to have a family meeting and then they would inform us of their decision. Status: Acute Qualifiers: Infective endocarditis organism: bacterial Chronicity: acute Qualified Code(s): I33.0 - Acute and subacute infective endocarditis (2) Sepsis: Status: Acute Qualifiers: Sepsis acute organ dysfunction status: with acute organ dysfunction Sepsis type: methicillin resistant Staphylococcus aureus Severe sepsis acute organ dysfunction type: encephalopathy Severe sepsis shock status: unspecified Qualified Code(s): A41.02 - Sepsis due to Methicillin resistant Staphylococcus aureus; R65.20 - Severe sepsis without septic shock; G93.41 - Metabolic encephalopathy (3) Staphylococcus aureus bacteremia: On broad spectrum antibiotics. Status: Acute (4) Cavitary lung disease: CT chest read as There is a 3.2 x 2.5 cm pleural based mass in the right upper lobe of the lung as seen on sagittal image 54. There is internal gas. No associated calcification. There is an adjacent 0.7 cm nodule in the right upper lobe on series 2, image 19 and a 1.3 cm nodule in the anterior right upper lobe on image 24. There are nodules in the right middle lobe on series 2, images 39 and 40 measuring less than a cm in size. There is a 1.3 cm nodule in the left upper lobe with internal cavitation on series 2, image 22 and a 0.3 cm nodule in the left lower lobe on image 34. There is a calcified granuloma in the right middle lobe of the lung. IMPRESSION: There is a pleural based mass in the right upper lobe of the lung with internal cavitation. Other nodules are identified in the bilateral lungs. Findings are suspicious for malignancy with multifocal metastatic nodules.If there is desire for further evaluation, a PET scan or biopsy could be performed . There was concern for septic emboli and findings were thought not to be due to MRSA pneumonia ?. Status: Acute (5) Septic embolism: To spleen. ?Lung in absence of PFO/ASD. No evidence of tricuspid or pulmonary valves infective endocarditis. There is a small globular thickening noted in the right atrium however this does not have the typical appearance of vegetation. Status: Acute Additional A&P Information Hyponatremia Hypotension : was on levophed overnight. Off pressor at the time of exam. Concern for pyelonephritis Thrombocytopenia Transaminitis Alcohol abuse h/o hypertension Hyperlipidemia I appreciate Dr. Marquez's help and expertise in managing the patient Attestations Medical Necessity Statement*: Patient remains critically ill and requires ICU stay. Procedures Time out/Consent Time Out Performed: Yes Consent for Procedure: Consent obtained from other (indicate) (Brother Greg), Risks & Benefits reviewed and Agrees to proceed with procedure Procedure Narrative MARISSA Procedure note Indication: Staph aureus bacteremia rule out endocarditis Sedation: Propofol by anesthesia The procedure was performed bedside in ICU. Procedure was explained to the patient in detail and informed consent was obtained. Timeout was called. After achieving adequate sedation, the probe was inserted on first attempt. No blood on the probe post procedure. Prelim report: Normal left ventricle size and systolic function. Large elongated mass with independent motion seen attached to left ventricular outflow tract below aortic valves. Globular thickening noted on left and non coronary cusps of aortic valve as well. These finding are suggestive of infective endocarditis. Severe aortic valve regurgitation. No left atrial or left atrial appendage mass or thrombus visualized. No ASD or PFO identified. Full report to follow. Patient tolerated the procedure well. Coding Level of Care Code Acute Stuffed Casing Tier for [facility] Fwd Exam Detailed Diagnoses Infective endocarditis I33.0 Infective endocarditis organism: bacterial Chronicity: acute Sepsis A41.02; R65.20; G93.41 Sepsis acute organ dysfunction status: with acute organ dysfunction Sepsis type: methicillin resistant Staphylococcus aureus Severe sepsis acute organ dysfunction type: encephalopathy Severe sepsis shock status: unspecified Staphylococcus aureus bacteremia R78.81; B95.61 Cavitary lung disease J98.4 Septic embolism I76
[2020-07-16 12:54] LABS: Lactic Acid level (Lactate) 2.8 mmol/L (0.5-2.2)
--- NOTE | 2020-07-16 13:15 | PC.SLP ---
One attempt to see patient on 07/16/20 and two attempts on 07/17/20 to evaluate patient for swallowing. Patient continues to not be alert enough to fully participate in his evaluation at this time. Will continue to monitor.
--- NOTE | 2020-07-16 13:22 | PM.PN ---
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, denies seeing or hearing things that are not there, denies feel things of anxiety, understands why he is here in the hospital Vitals/I&O/Wt Last Vital Signs Temp 99.0 F 07/16/20 06:00 Pulse 104 H 07/16/20 09:00 Resp 19 H 07/16/20 09:00 BP 120/54 07/16/20 09:00 Pulse Ox 95 07/16/20 09:00 07/15/20 07/16/20 07/16/20 22:59 06:59 14:59 Intake Total 1085.298 / 2135.298 410.084 / 2545.382 936.25 / 936.25 Output Total 175 / 175 300 / 475 Balance 910.298 / 1960.298 110.084 / 2070.382 936.25 / 936.25 Weight last 48 hrs Weight 71.486 kg Weight 72.121 kg Weight 72.121 kg Physical Exam Const: COMMON NORMALS: no acute distress and patient oriented x3 HENMT: COMMON NORMALS: normocephalic HEAD & SCALP: normocephalic Neck/C-Spine: COMMON NORMALS: no JVD Resp: COMMON NORMALS: normal respiratory effort, No retractions, No use of accessory muscles and clear to auscultation bilaterally AUSCULTATION: clear to auscultation bilaterally Cardio: COMMON NORMALS: no JVD, regular rate, regular rhythm, S1 normal heart sound present and S2 normal heart sound present RATE: regular rate RHYTHM: regular rhythm HEART SOUNDS: S1 normal heart sound present and S2 normal heart sound present GI: COMMON NORMALS: Normal to inspection, nondistended, normoactive bowel sounds present, Soft to palpation, non-tender, No hepatosplenomegaly present, no masses and no bruits PALPATION: Yes Soft to palpation and Yes No hepatosplenomegaly present Extremity: COMMON NORMALS: capillary refill normal, no clubbing, cyanosis or edema, no calf tenderness and no pedal edema Neuro: COMMON NORMALS: patient oriented x3 Psych: COMMON NORMALS: mental status grossly normal Data : 07/16/20 04:30 07/16/20 04:30 Micro: Microbiology 07/15/20 13:00 Blood Culture - Preliminary Blood Gram positive cocci 07/15/20 12:55 Blood Culture - Preliminary Blood Gram positive cocci 07/14/20 10:34 Blood Culture - Preliminary Blood Gram positive cocci 07/14/20 10:45 Blood Culture - Preliminary Blood Gram positive cocci 07/13/20 10:15 Blood Culture - Preliminary Blood Staphylococcus aureus 07/13/20 11:32 Blood Culture - Preliminary Blood Staphylococcus aureus 07/13/20 10:20 Urine Culture - Final Urine,Clean Catch Methicillin Resis Staph Aureus 07/14/20 23:54 MRSA Culture - Final Nose A&P Assessment and plan (1) Sepsis: Secondary to bacteremia Urine and blood now showing staph aureus, broadened antibiotic coverage with IV vancomycin and Zosyn Hold home antihypertensives Obtaining further imaging studies including MRI of the spine and CT scan of the abdomen and pelvis Status: Acute Qualifiers: Sepsis acute organ dysfunction status: with acute organ dysfunction Sepsis type: methicillin resistant Staphylococcus aureus Severe sepsis acute organ dysfunction type: encephalopathy (2) Cystitis: Urine culture showing staph aureus Concern for MSSA or MRSA bacteremia, awaiting further culture results. Broadened antibiotic coverage to IV vancomycin and Zosyn Status: Acute (3) Acute hyponatremia: Improved, also believed to be chronic in nature after finding out that patient drinks beer daily Status: Acute (4) Essential hypertension: Hold home amlodipine and lisinopril Status: Acute (5) Diabetes: Hold metformin due to lactic acidosis Place on moderate dose sliding scale insulin Status: Acute Additional A&P Information Staph aureus bacteremia: Repeat blood cultures ordered yesterday are positive for gram-positive cocci, has a total of 4 sets of positive blood cultures, I was told by the lab that preliminary looks like staph aureus, continue on vancomycin and Zosyn. MRI of the spine no osteomyelitis or discitis. Discussed with Dr. Herrera for consultation for MARISSA due to concern for bacterial endocarditis, hopefully will be performed today Thrombocytopenia: Platelet count has decreased since admission, holding Lovenox, DIC panel ordered, splenic imaging ordered with CT scan shows several nonspecific low-attenuation lesions within the spleen, more focal low attenuation in the superior aspect of the spleen suspicious for small infarcts. Highly suspicious for septic emboli. Etiology of thrombocytopenia likely secondary to bacteremia, sepsis, alcohol consumption Splenic infarcts, highly suspicious for septic emboli Pyelonephritis: CT shows heterogeneous striated enhancement involving both kidneys suspicious for pyelonephritis, is on vancomycin, Zosyn, urine cultures growing MRSA Lung lesion: Discussed with Dr. Woo in consultation, will hold off on biopsy at this time and continue to treat infectious process. Repeat CT scan following discharge with further management at that time as indicated. Discussed with patient question of infectious versus metastatic disease, likely highly suspicious for septic emboli Generalized malaise and weakness: PT and OT ordered, does have mild central spinal stenosis at C6-C7 Elevated AST and ALT, appears to be chronic in nature, hepatitis panel is negative. Now reported from family due to have strong history of alcohol use. Approximately 12 or more beers per day Alcoholism: Reported approximately 12 beers per day, monitor closely on CIWA protocol with Ativan Hypoalbuminemia with malnutrition: Nutrition consult placed Hematuria: Due to UTI we will continue to monitor closely DVT prophylaxis: SCDs, Lovenox held due to thrombocytopenia Diet: Regular diet, added Ensure shakes CODE STATUS: DNR/DNI, discussed with patient at time of exam and his brother was at bedside during discussion Attestations Medical Necessity Statement*: Patient requires hospitalization due to staph aureus bacteremia concerning for endocarditis Coding Level of Care Code Acute User Experience 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
--- NOTE | 2020-07-16 16:08 | ANES.PREANE2 ---
Pre-Anesthetic Assessment Pre-Anesthetic Assessment: Height/Weight: Height 1.73 m Weight 71.486 kg Temp Pulse Resp BP Pulse Ox 98.6 F 106 H 21 H 107/49 94 07/16/20 12:00 07/16/20 13:23 07/16/20 12:00 07/16/20 12:00 07/16/20 13:23 Proposed Procedure: Operation Date: 07/16/20 16:30 Proposed Procedures p MARISSA (Transesophageal Echocardiogram)(Not Applicable) - Kori Herrera MD Familial anesthetic complications: none Was Beta Mila taken within 24 hours: N/A Last intake: NPO > 8 hrs Social: Social History: Alcohol and Tobacco Exam: Pre-Anes Outpt Exam: alert, oriented x 3, clear to auscultation bilaterally and regular rate & rhythm Additional Exam Findings (including area of procedure): sinus tachy, diminished breath sounds Airway: Cervical ROM: WNL MP: 3 Additional comments: missing - poor dentition Pulmonary: Comments: cavitary lung lesions CV/HEM: Comments: ON levo gtt thrombocytopenia Metabolic: Metabolic: DM Comments: acute hyponatremia Neuropsych: Neuropsych: None reported Anesthetic Plan: ASA status: 4 Anesthesia: MAC Risk of > 500 ml blood loss (7ml/kg in children): No Meds/Allergies Current Medications: Current Medications Generic Name Dose Route Start Last Admin Trade Name Freq PRN Reason Stop Dose Admin Acetaminophen 650 mg 07/13/20 12:46 07/16/20 02:38 Tylenol PO 650 mg Q6H PRN Administration Mild/Mod Pain Or Temp >/= 101 Docusate Sodium 100 mg 07/13/20 18:00 07/16/20 08:51 Colace PO 100 mg BID DAWNA Administration Folic Acid 1 mg 07/16/20 09:00 07/16/20 08:51 Folic Acid PO 1 mg DAILY DAWNA Administration Sodium Chloride 1,000 mls @ 75 ml s/hr 07/13/20 13:00 07/16/20 11:01 Sodium Chloride 0.9% IV 75 mls/hr .[id number] DAWNA Administration Vancomycin HCl 1,2 50 mg/ 250 mls @ 200 mls /hr 07/14/20 11:00 07/16/20 14:02 Sodium Chloride IV Infused Q12H DAWNA Infusion Protocol Piperacillin Sod/T azobactam 50 mls @ 12.5 mls /hr 07/14/20 11:00 07/16/20 12:25 Sod 3.375 gm/ So dium Chloride IV 12.5 mls/hr Q8H [facility] Administration Norepinephrine Bit artrate 4 mg 254 mls @ 0 mls/h r 07/15/20 18:45 07/16/20 13:00 / Dextrose IV Infused .Q0M [facility] Titration Protocol Per Protocol Insulin Aspart 0 unit 07/13/20 21:00 07/15/20 20:28 Novolog SUBCUT 2 unit BEDTIME DAWNA Administration Protocol Insulin Aspart 0 unit 07/13/20 18:00 07/16/20 12:24 Novolog SUBCUT 6 unit TIDWM [facility] Administration Protocol Insulin Detemir 5 unit 07/16/20 09:00 07/16/20 08:52 Levemir SUBCUT 5 unit DAILY [facility] Administration Morphine Sulfate 2 mg 07/13/20 12:46 07/16/20 05:32 Morphine IVP 2 mg Q4H PRN Administration SEVERE PAIN Multivitamins Ther apeutic 1 tab 07/16/20 09:00 07/16/20 08:51 Multivitamin Tab PO 1 tab DAILY [facility] Administration Thiamine Mononitra te 100 mg 07/16/20 09:00 07/16/20 08:51 Vitamin B-1 PO 100 mg DAILY [facility] Administration Additional Medication Information: Current Medications Acetaminophen (Tylenol) 650 mg PO Q6H PRN PRN Reason: Mild/Mod Pain Or Temp >/= 101 Last Admin: 07/16/20 02:38 Dose: 650 mg Documented by: Hydrocodone Bitart/Acetaminophen ([place] 10-325 Mg) 1 tab PO TID PRN PRN Reason: Pain Aspirin (Aspirin Ec) 81 mg PO PRN [facility] Dextrose (D50w) 25 ml IVP ONCE PRN; Protocol PRN Reason: hypoglycemia protocol Dextrose (D50w) 50 ml IVP PRN PRN; Protocol PRN Reason: hypoglycemia protocol Docusate Sodium (Colace) 100 mg PO BID [facility] Last Admin: 07/16/20 08:51 Dose: 100 mg Documented by: Folic Acid (Folic Acid) 1 mg PO DAILY [facility] Last Admin: 07/16/20 08:51 Dose: 1 mg Documented by: Glucagon (Glucagen) 1 mg IM ONCE PRN; Protocol PRN Reason: Adult Acute Hypoglycemia Prot. Sodium Chloride (Sodium Chloride 0.9%) 1,000 mls @ 75 mls/hr IV .[id number] DAWNA Last Admin: 07/16/20 11:01 Dose: 75 mls/hr Documented by: Dextrose (D5w) 500 mls @ 100 mls/hr IV ONCE PRN; Protocol PRN Reason: Adult Acute Hypoglycemia Prot Vancomycin HCl 1,250 mg/ (Sodium Chloride) 250 mls @ 200 mls/hr IV Q12H [facility]; Protocol Last Admin: 07/16/20 11:26 Dose: 200 mls/hr Documented by: Piperacillin Sod/Tazobactam (Sod 3.375 gm/ Sodium Chloride) 50 mls @ 12.5 mls/hr IV Q8H [facility] Last Infusion: 07/16/20 07:30 Dose: 0 mls/hr Documented by: Norepinephrine Bitartrate 4 mg (/ Dextrose) 254 mls @ 0 mls/hr IV .Q0M DAWNA; Protocol Last Titration: 07/16/20 05:35 Dose: 22.5 mls/hr, 22.5 mls/hr Documented by: Insulin Aspart (Novolog) 0 unit SUBCUT BEDTIME [facility]; Protocol Last Admin: 07/15/20 20:28 Dose: 2 unit Documented by: Insulin Aspart (Novolog) 0 unit SUBCUT TIDWM [facility]; Protocol Last Admin: 07/16/20 08:51 Dose: 6 unit Documented by: Insulin Detemir (Levemir) 5 unit SUBCUT DAILY [facility] Last Admin: 07/16/20 08:52 Dose: 5 unit Documented by: Lorazepam (Ativan) 2 mg IM PROTOCOL PRN; Protocol PRN Reason: ALCOWD Lorazepam (Ativan) 2 mg PO PROTOCOL PRN; Protocol PRN Reason: WITHDRAWAL Morphine Sulfate (Morphine) 2 mg IVP Q4H PRN PRN Reason: SEVERE PAIN Last Admin: 07/16/20 05:32 Dose: 2 mg Documented by: Multivitamins Therapeutic (Multivitamin Tab) 1 tab PO DAILY [facility] Last Admin: 07/16/20 08:51 Dose: 1 tab Documented by: Naloxone HCl (Narcan) 0.1 mg IVP Q2M PRN PRN Reason: OPIATERV Ondansetron HCl (Zofran) 4 mg IVP Q8H PRN PRN Reason: vomiting, or N/V if npo Ondansetron HCl (Zofran) 4 mg IVP Q6H PRN PRN Reason: NAUSEA AND VOMITING Thiamine Mononitrate (Vitamin B-1) 100 mg PO DAILY DAWNA Last Admin: 07/16/20 08:51 Dose: 100 mg Documented by: PFSH Anesthesia PFSH: Medical History COPD (chronic obstructive pulmonary disease) Diabetes Essential hypertension Mixed hyperlipidemia Vitamin D deficiency Surgical History History of colonoscopy Family History Mother CAD (coronary artery disease) Diabetes Cirrhosis Father CAD (coronary artery disease) Social History Smoking and tobacco status: former smoker Second hand smoke exposure: No Alcohol intake: current Desire information about alcohol rehabilitation?: No Counseling given: No Substance/Drug Use: never Data Anesthesia CBC & Chem 7: 07/16/20 04:30 07/16/20 04:30 Other Labs: Laboratory Results - last 48 hr 07/14/20 07/14/20 07/15/20 17:09 19:49 04:45 WBC 18.7 H WBC Comment RBC 3.38 L Hgb 11.7 Hct 33.4 L MCV 98.8 H MCH 34.6 H MCHC 35.0 RDW 12.6 Plt Count 38 L MPV 12.4 H Neut % (Auto) 84.0 Lymph % (Auto) 4.4 Hand % (Auto) 8.3 Eos % (Auto) 0.1 Baso % (Auto) 0.5 Neut # (Auto) 15.71 H Lymph # (Auto) 0.8 Hand # (Auto) 1.6 H Eos # (Auto) 0.0 Baso # (Auto) 0.1 Nucleated RBC % (auto) 0 Total Counted 100 Atypical Lymphs % Absolute Neutrophils 17.8 H Segmented Neutrophils 74 Abs Segm Neuts (Man) 13.8 H Band Neutrophils 21.0 Abs Band Neuts (Man) 3.9 H Absolute Lymphocytes Lymphocytes (Manual) 2 Monocytes (Manual) 3.0 Absolute Monocytes 0.6 Eosinophils (Manual) Absolute Eosinophils Basophils (Manual) Absolute Basophils Metamyelocytes Myelocytes Promyelocytes Nucleated RBCs Nucleated RBCs # 0.0 Pathologist Review Hypersegmented Polys Blast Cells Smudge Cells Toxic Granulation Toxic Vacuolation Dohle Bodies Sabrina Rods Platelet Estimate Decreased Giant Platelets Polychromasia Hypochromasia Poikilocytosis Basophilic Stippling Anisocytosis Microcytosis Macrocytosis Spherocytes Sickle Cells Target Cells Tear Drop Cells Ovalocytes Stomatocytes Helmet Cells [place] Bodies Gee Cells Crenated Cell Acanthocytes (Spur) Rouleaux Schistocytes RBC Morph Comment Haptoglobin PT INR APTT Fibrinogen Fibrin Degrad Products D-Dimer Sodium Potassium Chloride Carbon Dioxide Anion Gap BUN Creatinine GFR Calculation Glucose POC Glucose 260 185 Calculated Osmolality Lactic Acid Lactic Acid (Sepsis) Calcium Total Bilirubin AST ALT Alkaline Phosphatase Lactate Dehydrogenase C-Reactive Protein Total Protein Albumin Globulin Procalcitonin Vancomycin Trough HIV 1&2 Ab & HIV 1 Ag HIV 1&2 Antibody 07/15/20 07/15/20 07/15/20 04:45 04:45 04:45 WBC WBC Comment Cancelled RBC Hgb Hct MCV MCH MCHC RDW Plt Count MPV Neut % (Auto) Lymph % (Auto) Hand % (Auto) Eos % (Auto) Baso % (Auto) Neut # (Auto) Lymph # (Auto) Hand # (Auto) Eos # (Auto) Baso # (Auto) Nucleated RBC % (auto) Total Counted Cancelled Atypical Lymphs % Cancelled Absolute Neutrophils Cancelled Segmented Neutrophils Cancelled Abs Segm Neuts (Man) Cancelled Band Neutrophils Cancelled Abs Band Neuts (Man) Cancelled Absolute Lymphocytes Cancelled Lymphocytes (Manual) Cancelled Monocytes (Manual) Cancelled Absolute Monocytes Cancelled Eosinophils (Manual) Cancelled Absolute Eosinophils Cancelled Basophils (Manual) Cancelled Absolute Basophils Cancelled Metamyelocytes Cancelled Myelocytes Cancelled Promyelocytes Cancelled Nucleated RBCs Cancelled Nucleated RBCs # Pathologist Review Cancelled Hypersegmented Polys Cancelled Blast Cells Cancelled Smudge Cells Cancelled Toxic Granulation Cancelled Toxic Vacuolation Cancelled Dohle Bodies Cancelled Sabrina Rods Cancelled Platelet Estimate Cancelled Giant Platelets Cancelled Polychromasia Cancelled Hypochromasia Cancelled Poikilocytosis Cancelled Basophilic Stippling Cancelled Anisocytosis Cancelled Microcytosis Cancelled Macrocytosis Cancelled Spherocytes Cancelled Sickle Cells Cancelled Target Cells Cancelled Tear Drop Cells Cancelled Ovalocytes Cancelled Stomatocytes Cancelled Helmet Cells Cancelled [place] Bodies Cancelled Gee Cells Cancelled Crenated Cell Cancelled Acanthocytes (Spur) Cancelled Rouleaux Cancelled Schistocytes Cancelled RBC Morph Comment Cancelled Haptoglobin PT 18.50 H INR 1.49 H APTT 34.1 Fibrinogen 398 Fibrin Degrad Products Pos, 10-40 H D-Dimer >= 20.00 H Sodium 133 L Potassium 3.4 L Chloride 101 Carbon Dioxide 23 Anion Gap 12.4 BUN 30 H Creatinine 0.8 GFR Calculation 98.6 Glucose 200 H POC Glucose Calculated Osmolality 279 L Lactic Acid Lactic Acid (Sepsis) Calcium 7.6 L Total Bilirubin 0.9 AST 50 H ALT 38 Alkaline Phosphatase 103 Lactate Dehydrogenase C-Reactive Protein Total Protein 5.6 L Albumin 1.8 L Globulin 3.8 Procalcitonin Vancomycin Trough HIV 1&2 Ab & HIV 1 Ag HIV 1&2 Antibody 07/15/20 07/15/20 07/15/20 06:38 10:10 11:26 WBC WBC Comment RBC Hgb Hct MCV MCH MCHC RDW Plt Count MPV Neut % (Auto) Lymph % (Auto) Hand % (Auto) Eos % (Auto) Baso % (Auto) Neut # (Auto) Lymph # (Auto) Hand # (Auto) Eos # (Auto) Baso # (Auto) Nucleated RBC % (auto) Total Counted Atypical Lymphs % Absolute Neutrophils Segmented Neutrophils Abs Segm Neuts (Man) Band Neutrophils Abs Band Neuts (Man) Absolute Lymphocytes Lymphocytes (Manual) Monocytes (Manual) Absolute Monocytes Eosinophils (Manual) Absolute Eosinophils Basophils (Manual) Absolute Basophils Metamyelocytes Myelocytes Promyelocytes Nucleated RBCs Nucleated RBCs # Pathologist Review Hypersegmented Polys Blast Cells Smudge Cells Toxic Granulation Toxic Vacuolation Dohle Bodies Sabrina Rods Platelet Estimate Giant Platelets Polychromasia Hypochromasia Poikilocytosis Basophilic Stippling Anisocytosis Microcytosis Macrocytosis Spherocytes Sickle Cells Target Cells Tear Drop Cells Ovalocytes Stomatocytes Helmet Cells [place] Bodies [place] Cells Crenated Cell Acanthocytes (Spur) Rouleaux Schistocytes RBC Morph Comment Haptoglobin PT INR APTT Fibrinogen Fibrin Degrad Products D-Dimer Sodium Potassium Chloride Carbon Dioxide Anion Gap BUN Creatinine GFR Calculation Glucose POC Glucose 191 186 Calculated Osmolality Lactic Acid Lactic Acid (Sepsis) Calcium Total Bilirubin AST ALT Alkaline Phosphatase Lactate Dehydrogenase C-Reactive Protein Total Protein Albumin Globulin Procalcitonin Vancomycin Trough 13.5 HIV 1&2 Ab & HIV 1 Ag HIV 1&2 Antibody 07/15/20 07/15/20 07/15/20 15:34 17:41 19:00 WBC WBC Comment RBC Hgb Hct MCV MCH MCHC RDW Plt Count MPV Neut % (Auto) Lymph % (Auto) Hand % (Auto) Eos % (Auto) Baso % (Auto) Neut # (Auto) Lymph # (Auto) Hand # (Auto) Eos # (Auto) Baso # (Auto) Nucleated RBC % (auto) Total Counted Atypical Lymphs % Absolute Neutrophils Segmented Neutrophils Abs Segm Neuts (Man) Band Neutrophils Abs Band Neuts (Man) Absolute Lymphocytes Lymphocytes (Manual) Monocytes (Manual) Absolute Monocytes Eosinophils (Manual) Absolute Eosinophils Basophils (Manual) Absolute Basophils Metamyelocytes Myelocytes Promyelocytes Nucleated RBCs Nucleated RBCs # Pathologist Review Hypersegmented Polys Blast Cells Smudge Cells Toxic Granulation Toxic Vacuolation Dohle Bodies Sabrina Rods Platelet Estimate Giant Platelets Polychromasia Hypochromasia Poikilocytosis Basophilic Stippling Anisocytosis Microcytosis Macrocytosis Spherocytes Sickle Cells Target Cells Tear Drop Cells Ovalocytes Stomatocytes Helmet Cells [place] Bodies Gee Cells Crenated Cell Acanthocytes (Spur) Rouleaux Schistocytes RBC Morph Comment Haptoglobin PT INR APTT Fibrinogen Fibrin Degrad Products D-Dimer Sodium Potassium Chloride Carbon Dioxide Anion Gap BUN Creatinine GFR Calculation Glucose POC Glucose 201 205 Calculated Osmolality Lactic Acid 2.5 H Lactic Acid (Sepsis) Calcium Total Bilirubin AST ALT Alkaline Phosphatase Lactate Dehydrogenase C-Reactive Protein Total Protein Albumin Globulin Procalcitonin Vancomycin Trough HIV 1&2 Ab & HIV 1 Ag HIV 1&2 Antibody 07/15/20 07/15/20 07/16/20 20:23 21:50 04:30 WBC 25.4 H WBC Comment RBC 3.36 L Hgb 11.4 L Hct 33.7 L MCV 100.3 H MCH 33.9 MCHC 33.8 RDW 13.0 Plt Count 44 L MPV 12.8 H Neut % (Auto) 81.1 Lymph % (Auto) 6.0 Hand % (Auto) 9.0 Eos % (Auto) 0.2 Baso % (Auto) 0.5 Neut # (Auto) 20.64 H Lymph # (Auto) 1.5 Hand # (Auto) 2.3 H Eos # (Auto) 0.0 Baso # (Auto) 0.1 Nucleated RBC % (auto) 0 Total Counted Atypical Lymphs % Absolute Neutrophils Segmented Neutrophils Abs Segm Neuts (Man) Band Neutrophils Abs Band Neuts (Man) Absolute Lymphocytes Lymphocytes (Manual) Monocytes (Manual) Absolute Monocytes Eosinophils (Manual) Absolute Eosinophils Basophils (Manual) Absolute Basophils Metamyelocytes Myelocytes Promyelocytes Nucleated RBCs Nucleated RBCs # 0.0 Pathologist Review Hypersegmented Polys Blast Cells Smudge Cells Toxic Granulation Toxic Vacuolation Dohle Bodies Sabrina Rods Platelet Estimate Giant Platelets Polychromasia Hypochromasia Poikilocytosis Basophilic Stippling Anisocytosis Microcytosis Macrocytosis Spherocytes Sickle Cells Target Cells Tear Drop Cells Ovalocytes Stomatocytes Helmet Cells [place] Bodies [place] Cells Crenated Cell Acanthocytes (Spur) Rouleaux Schistocytes RBC Morph Comment Haptoglobin PT INR APTT Fibrinogen Fibrin Degrad Products D-Dimer Sodium Potassium Chloride Carbon Dioxide Anion Gap BUN Creatinine GFR Calculation Glucose POC Glucose 166 Calculated Osmolality Lactic Acid Lactic Acid (Sepsis) 2.7 H Calcium Total Bilirubin AST ALT Alkaline Phosphatase Lactate Dehydrogenase C-Reactive Protein Total Protein Albumin Globulin Procalcitonin Vancomycin Trough HIV 1&2 Ab & HIV 1 Ag HIV 1&2 Antibody 07/16/20 07/16/20 07/16/20 04:30 04:30 04:30 WBC WBC Comment RBC Hgb Hct MCV MCH MCHC RDW Plt Count MPV Neut % (Auto) Lymph % (Auto) Hand % (Auto) Eos % (Auto) Baso % (Auto) Neut # (Auto) Lymph # (Auto) Hand # (Auto) Eos # (Auto) Baso # (Auto) Nucleated RBC % (auto) Total Counted Atypical Lymphs % Absolute Neutrophils Segmented Neutrophils Abs Segm Neuts (Man) Band Neutrophils Abs Band Neuts (Man) Absolute Lymphocytes Lymphocytes (Manual) Monocytes (Manual) Absolute Monocytes Eosinophils (Manual) Absolute Eosinophils Basophils (Manual) Absolute Basophils Metamyelocytes Myelocytes Promyelocytes Nucleated RBCs Nucleated RBCs # Pathologist Review Hypersegmented Polys Blast Cells Smudge Cells Toxic Granulation Toxic Vacuolation Dohle Bodies Sabrina Rods Platelet Estimate Giant Platelets Polychromasia Hypochromasia Poikilocytosis Basophilic Stippling Anisocytosis Microcytosis Macrocytosis Spherocytes Sickle Cells Target Cells Tear Drop Cells Ovalocytes Stomatocytes Helmet Cells [place] Bodies Gee Cells Crenated Cell Acanthocytes (Spur) Rouleaux Schistocytes RBC Morph Comment Haptoglobin 184.0 PT 19.90 H INR 1.63 H APTT Fibrinogen Fibrin Degrad Products D-Dimer Sodium 136 Potassium 3.6 Chloride 105 Carbon Dioxide 18 L Anion Gap 16.6 BUN 62 H Creatinine 1.2 GFR Calculation 61.8 L Glucose 232 H POC Glucose Calculated Osmolality 288 Lactic Acid Lactic Acid (Sepsis) Calcium 7.1 L Total Bilirubin 1.2 AST 48 H ALT 30 Alkaline Phosphatase 95 Lactate Dehydrogenase 417 H C-Reactive Protein 128.8 H Total Protein 6.3 L Albumin 1.8 L Globulin 4.5 Procalcitonin 3.92 H Vancomycin Trough HIV 1&2 Ab & HIV 1 Ag HIV 1&2 Antibody 07/16/20 07/16/20 07/16/20 04:30 08:39 09:26 WBC WBC Comment RBC Hgb Hct MCV MCH MCHC RDW Plt Count MPV Neut % (Auto) Lymph % (Auto) Hand % (Auto) Eos % (Auto) Baso % (Auto) Neut # (Auto) Lymph # (Auto) Hand # (Auto) Eos # (Auto) Baso # (Auto) Nucleated RBC % (auto) Total Counted Atypical Lymphs % Absolute Neutrophils Segmented Neutrophils Abs Segm Neuts (Man) Band Neutrophils Abs Band Neuts (Man) Absolute Lymphocytes Lymphocytes (Manual) Monocytes (Manual) Absolute Monocytes Eosinophils (Manual) Absolute Eosinophils Basophils (Manual) Absolute Basophils Metamyelocytes Myelocytes Promyelocytes Nucleated RBCs Nucleated RBCs # Pathologist Review Hypersegmented Polys Blast Cells Smudge Cells Toxic Granulation Toxic Vacuolation Dohle Bodies Sabrina Rods Platelet Estimate Giant Platelets Polychromasia Hypochromasia Poikilocytosis Basophilic Stippling Anisocytosis Microcytosis Macrocytosis Spherocytes Sickle Cells Target Cells Tear Drop Cells Ovalocytes Stomatocytes Helmet Cells [place] Bodies [place] Cells Crenated Cell Acanthocytes (Spur) Rouleaux Schistocytes RBC Morph Comment Haptoglobin PT INR APTT Fibrinogen Fibrin Degrad Products D-Dimer Sodium Potassium Chloride Carbon Dioxide Anion Gap BUN Creatinine GFR Calculation Glucose POC Glucose 212 Calculated Osmolality Lactic Acid 2.4 H Lactic Acid (Sepsis) Calcium Total Bilirubin AST ALT Alkaline Phosphatase Lactate Dehydrogenase C-Reactive Protein Total Protein Albumin Globulin Procalcitonin Vancomycin Trough HIV 1&2 Ab & HIV 1 Ag Non-reactive HIV 1&2 Antibody Non-reactive 07/16/20 07/16/20 12:14 12:27 WBC WBC Comment RBC Hgb Hct MCV MCH MCHC RDW Plt Count MPV Neut % (Auto) Lymph % (Auto) Hand % (Auto) Eos % (Auto) Baso % (Auto) Neut # (Auto) Lymph # (Auto) Hand # (Auto) Eos # (Auto) Baso # (Auto) Nucleated RBC % (auto) Total Counted Atypical Lymphs % Absolute Neutrophils Segmented Neutrophils Abs Segm Neuts (Man) Band Neutrophils Abs Band Neuts (Man) Absolute Lymphocytes Lymphocytes (Manual) Monocytes (Manual) Absolute Monocytes Eosinophils (Manual) Absolute Eosinophils Basophils (Manual) Absolute Basophils Metamyelocytes Myelocytes Promyelocytes Nucleated RBCs Nucleated RBCs # Pathologist Review Hypersegmented Polys Blast Cells Smudge Cells Toxic Granulation Toxic Vacuolation Dohle Bodies Sabrina Rods Platelet Estimate Giant Platelets Polychromasia Hypochromasia Poikilocytosis Basophilic Stippling Anisocytosis Microcytosis Macrocytosis Spherocytes Sickle Cells Target Cells Tear Drop Cells Ovalocytes Stomatocytes Helmet Cells [place] Bodies Gee Cells Crenated Cell Acanthocytes (Spur) Rouleaux Schistocytes RBC Morph Comment Haptoglobin PT INR APTT Fibrinogen Fibrin Degrad Products D-Dimer Sodium Potassium Chloride Carbon Dioxide Anion Gap BUN Creatinine GFR Calculation Glucose POC Glucose 182 Calculated Osmolality Lactic Acid Lactic Acid (Sepsis) 2.8 H Calcium Total Bilirubin AST ALT Alkaline Phosphatase Lactate Dehydrogenase C-Reactive Protein Total Protein Albumin Globulin Procalcitonin Vancomycin Trough HIV 1&2 Ab & HIV 1 Ag HIV 1&2 Antibody Micro: Microbiology 07/13/20 10:15 Blood Culture - Preliminary Blood Methicillin Resis Staph Aureus 07/13/20 11:32 Blood Culture - Preliminary Blood Methicillin Resis Staph Aureus 07/15/20 13:00 Blood Culture - Preliminary Blood Gram positive cocci 07/15/20 12:55 Blood Culture - Preliminary Blood Gram positive cocci 07/14/20 10:34 Blood Culture - Preliminary Blood Gram positive cocci 07/14/20 10:45 Blood Culture - Preliminary Blood Gram positive cocci 07/13/20 10:20 Urine Culture - Final Urine,Clean Catch Methicillin Resis Staph Aureus 07/14/20 23:54 MRSA Culture - Final Nose Cardiac Studies: No Data to Display
--- NOTE | 2020-07-16 16:30 | USCV_ITS ---
Nik Coello Age: 60 Gender: M : 1960 Exam Date: 07/16/2020 16:52 Ordering Phys: Kori Herrera MD [email or web address]) Technologist: Nii Emerson Exam Location: [facility] [place] Indication: Infective endocarditis BP: 98 / 60 HR: 100 Rhythm: Sinus Technical Quality: Excellent MEASUREMENTS (Male / Female) Normal Values Medications Sedation was administered by anesthesia. See separate report for details. Complications Intubation easy attempts x1. No blood on probe post procedure. Patient tolerated the procedure well and did not develop any periprocedural complications. Proc. Components The probe was advanced through oropharynx, esophagus and stomach. Multiple images were obatined at mid esophageal and transgastric levels. FINDINGS Left Ventricle Normal left ventricular size, systolic function and wall thickness, with no regional wall motion abnormalities. Left ventricular ejection fraction is estimated at 65 %. Right Ventricle Normal right ventricular size and systolic function. Right Atrium Normal right atrial size. Small globular homogenous minimally mobile mass noted at junction of superior vena cava and right atrium. This does not have typical appearance of endocarditis. Left Atrium Normal left atrial size. LA Appendage Normal left atrial appendage. No thrombus visualized in the left atrial appendage. IA Septum Normal interatrial septum. No evidence of atrial septal defect or patent foramen ovale by color and suboptimal agitated saline (bubble) study. Mitral Valve Structurally normal mitral valve. No mitral valve stenosis. Mild mitral valve regurgitation. Aortic Valve Trileaflet aortic khadijah with mild thickening of non coronary and left aortic cusps. An elongated highly mobile mass with filamentous extensions (38mm x 6 mm) is seen attached possibly to endocardial surface of left ventricular outflow tract near left coronary cusp. No aortic valve stenosis. Severe aortic valve regurgitation (PHT-147 msec, jet width/LVOT width > 65%). Tricuspid Valve Structurally normal tricuspid valve. No tricuspid valve stenosis. Trace to mild tricuspid valve regurgitation. Pulmonic Valve Structurally normal pulmonic valve. No pulmonary valve stenosis. Trace pulmonary valve regurgitation. Pericardium No pericardial effusion. Aorta Normal size aortic root and proximal ascending aorta. No evidence of dilation, aneurysm or dissection. Grade III atheroma noted in proximal ascending aorta. CONCLUSIONS 1. Normal left ventricular size, systolic function and wall thickness, with no regional wall motion abnormalities. Left ventricular ejection fraction is estimated at 65 %. 2. Trileaflet aortic khadijah with mild thickening of non coronary and left aortic cusps. An elongated highly mobile mass with filamentous extensions (38mm x 6 mm) is seen attached possibly to endocardial surface of left ventricular outflow tract near left coronary cusp. No evidence of aortic root abscess. 3. Severe aortic valve regurgitation (PHT-147 msec, jet width/LVOT width > 65%). 4. Small globular homogenous minimally mobile mass noted at junction of superior vena cava and right atrium. This does not have typical appearance of endocarditis. 5. 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 Kori Herrera MD (Electronically Signed) Final Date: 19 July 2020 23:39 S
--- NOTE | 2020-07-16 16:31 | PC.OT ---
OT note: From report nursing requested hold this date. Will attempt again later as able.
[2020-07-16 17:49] LABS: Glucose Point of Care 141 mg/dL (70-110)
[2020-07-16 21:50] LABS: Glucose Point of Care 115 mg/dL (70-110)
[2020-07-17] VITALS (12 sets, daily range): BP systolic 110–143; BP diastolic 42–60; PULSE 90–113; RESP 19–31; TEMP 36.7–38.3; O2SAT 92–96
[2020-07-17] MEDS: acetaminophen 325 mg Tablet 650 MG PO (04:09)
[2020-07-17] MEDS: piperacillin-tazobactam 3.375 GM in sodium chloride 0.9% (plus) 50 ML IV ×2 (04:09→13:41)
[2020-07-17 04:13] LABS: Basophils # 0.1 10^3/uL (0.0-0.1); Basophils % 0.4 %; Eosinophils % 0.1 %; Hematocrit 31.7 % (42.0-52.0); Hemoglobin 10.6 g/dL (11.7-16.6); Lymphocytes # 1.1 10^3/uL (0.8-4.8); Lymphocytes % 6.8 %; Mean Corpuscular HGB Conc 33.4 g/dL (30.0-36.0); Mean Corpuscular Hemoglobin 34.2 pg (28.0-34.0); Mean Corpuscular Volume 102.3 fL (80-94); Mean Platelet Volume 13.3 fL (7.4-10.4); Monocytes # 1.5 10^3/uL (0.2-0.9); Monocytes % 9.2 %; Neutrophils % 81.7 %; Nucleated Red Blood Cells % 0 %; Platelet Count 31 10^3/cmm (130-400); Red Cell Distribution Width 13.1 % (12.1-15.1); White Blood Count 16.3 10^3/uL (4.0-10.0)
[2020-07-17 04:40] LABS: Alanine Aminotransferase 26 U/L (0-41); Albumin Level 1.6 g/dL (3.5-5.2); Alkaline Phosphatase 73 IU/L (40-130); Aspartate Amino Transferase 44 U/L (0-40); Blood Urea Nitrogen 68 mg/dL (8-23); C Reactive Protein 109.3 mg/L (0.0-4.9); Carbon Dioxide 17 mmol/L (22-29); Chloride 111 mmol/L (98-107); Globulin 4.4 g/dL (1.3-4.6); Glomerular Filtration Rate 61.8 mL/min (90-130); Glucose 164 mg/dL (65-115); Magnesium 2.3 mg/dL (1.7-2.3); Osmolality Calculated 295 mOsm/kg (285-295); Phosphorus 4.6 mg/dL (2.5-4.5); Sodium 141 mmol/L (136-145); Total Bilirubin 1.1 mg/dL (0.15-1.2)
[2020-07-17 04:46] LABS: Procalcitonin 3.95 ng/mL (0-0.5)
[2020-07-17 04:47] LABS: Anion Gap 16.8 (5-19); Potassium 3.8 mmol/L (3.5-5.1)
[2020-07-17 05:20] LABS: Slide Review Slide Review Perform
--- NOTE | 2020-07-17 08:48 | PC.RESP ---
PULMONARY REHAB INFORMATION SENT TO PATIENT.
[2020-07-17] MEDS: folic acid 1 mg Tablet PO (08:50)
[2020-07-17] MEDS: docusate sodium 100 mg Capsule PO (08:50)
[2020-07-17] MEDS: multivitamin therapeutic Tablet 1 TAB PO (08:50)
[2020-07-17] MEDS: thiamine 100 mg Tablet PO (08:50)
[2020-07-17 08:56] LABS: Glucose Point of Care 190 mg/dL (70-110)
--- NOTE | 2020-07-17 09:57 | ANE.PACU2 ---
Inpatient post-anesthesia follow up: Airway intact: Yes Vital signs: Temperature 99.3 F Pulse Rate [Monito r] 115 Pulse Rate [Orthos tatic 122 Standing Left Radi al] Pulse Rate [Orthos tatic 112 Sitting Left Radia l] Pulse Rate [Orthos tatic Lying 119 Left Radial] Pulse Rate 109 Respiratory Rate 30 Blood Pressure [Or thostatic 90/61 Standing Right Arm ] Blood Pressure [Or thostatic 111/58 Sitting Right Arm] Blood Pressure [Or thostatic 107/78 Lying Right Arm] Blood Pressure [Ri ght Arm] 111/76 Blood Pressure 130/51 Pulse Oximetry 94 Oxygen Delivery Me thod [ Nasal Cannula Current Rate & Del pancho] Oxygen Delivery Me thod Nasal Cannula Oxygen Flow Rate [ Current Rate 3 & Delivery] Oxygen Flow Rate 3 Fraction of Inspir ed Oxygen Hydration adequate: Yes Nausea and vomiting: No Pain level: 1 Mental status: Altered Additional Comments: Patient's mental status at still baseline before anesthestic
--- NOTE | 2020-07-17 10:33 | PC.NURSE ---
iV to R FA dated 07/13 removed due to length of insertion, IV to L AC and L FA dislodged cath tip intact to all. New 20 Ga inserted into R hand good blood return and no resistance with flush, tolerated well
--- NOTE | 2020-07-17 11:01 | CT_ITS ---
WS: [id number] CT HEAD TECHNIQUE: Noncontrast CT of the head obtained from the skullbase to the vertex. CLINICAL INFORMATION: spetic emboli COMPARISON: CT July 13, 2020 DLP: 2299.[address] scans at [facility] use at least one of these dose optimization techniques: automat ed exposure control; mA and/or kV adjustment per patient size (includes targeted exams where dose is matched to clinical indication); or iterative reconstruction. FINDINGS: New focus of low-attenuation with a small amount of hemorrhage in the left parietal lobe likely repre sents hemorrhagic subacute infarct. Low-attenuation change extends to the left parietal cortex. Mild mass effect on the left lateral ventricle. No midline shift. Additional low-attenuation changes in th e left cerebellum may represent additional subacute infarcts. Small amount of right periventricular low-attenuation change also suspicious for subacute ischemia. This appears new from previous. No hydrocephalus. Mild small vessel changes. Moderate parenchymal volume loss. No extra-axial fluid c ollections. Paranasal sinuses and mastoid air cells are well aerated. .Normal visualized soft tissues. CT/CT head wo con* [id number] IMPRESSION: 1. New low-attenuation wedge-shaped presumed subacute infarct in the left jarek etal lobe extending to the cortex. Small amount of associated hemorrhage. Minim al mass effect on the left lateral ventricle. No midline shift. 2. Additional patchy possible subacute infarcts in the left cerebellum and rig ht periventricular white matter. This can be further evaluated with MRI. 3. No hydrocephalus. 4. No other significant changes. Message left for Jovanni Lipscomb MD at 07/17/2020 12:21 PM.
--- NOTE | 2020-07-17 12:05 | PC.OT ---
Discharging patient from therapy
[2020-07-17 12:34] LABS: Glucose Point of Care 161 mg/dL (70-110)
[2020-07-17 13:19] LABS: SARS Covid-2 Antigen Negative (Negative)
--- NOTE | 2020-07-17 13:46 | PC.NURSE ---
[facility] informed of Negative Sars test
--- NOTE | 2020-07-17 13:46 | PC.NURSE ---
New 20 ga inserted to R wrist, tolerated well
--- NOTE | 2020-07-17 14:55 | P.TS_ITS ---
Transfer Summary Providers Date of Admission: 07/13/20 12:07 Date of Discharge: 07/17/20 Attending Provider at Admission: Brina Mccoy DO Attending Provider at Transfer: Jovanni Lipscomb MD Anticipated Date of Transfer: Anticipated date of transfer: 07/17/20 Receiving Facility & Provider: Receiving Provider: [] Receiving facility: [] Diagnoses at Discharge Discharge Diagnosis (1) Infective endocarditis: Status: Acute Qualifiers: Infective endocarditis organism: bacterial Chronicity: acute Qualified Code(s): I33.0 - Acute and subacute infective endocarditis (2) Sepsis: Status: Acute Qualifiers: Sepsis acute organ dysfunction status: with acute organ dysfunction Sepsis type: methicillin resistant Staphylococcus aureus Severe sepsis acute organ dysfunction type: encephalopathy Severe sepsis shock status: unspecified Qualified Code(s): A41.02 - Sepsis due to Methicillin resistant Staphylococcus aureus; R65.20 - Severe sepsis without septic shock; G93.41 - Metabolic encephalopathy (3) Staphylococcus aureus bacteremia: Status: Acute (4) Cavitary lung disease: Status: Acute (5) Septic embolism: Status: Acute Reason for Visit Reason for Visit: PAIN ALL OVER Hospital Course Discharge Summary: This is a 60-year-old male with a past medical history of hypertension, diabetes, alcohol abuse who presents to [facility] for complaints of back pain and left lower extremity weakness. Patient was initially admitted to [facility] for sepsis, thrombocytopenia, lactic acidosis, transaminitis, secondary to sepsis which was possibly secondary to cystitis. Patient's transaminitis, thrombocytopenia, low albumin, elevated INR was likely secondary to chronic alcohol abuse, no CT evidence of cirrhosis, but also some component related to septicemia. On further work-up, patient was found to have gram-positive bacteremia, his antibiotic coverage was broadened, to vancomycin and Zosyn. Thus patient had bacteremia, with no clear source initially. Thoracic and cervical MRIs did not show any discitis or osteomyelitis or epidural abscess. Chest CT showed pleural-based mass in the right upper lobe of the lung with internal cavitation, after discussion with booking supervisor, there was concern for septic emboli as AN etiology. He had a CT scan of his abdomen which showed splenic infarcts, concerning for septic emboli. CT of the head was negative for any acute infarct. Thus there was a significant concern for endocarditis, with septic emboli, patient denied any IV drug use. Patient underwent a transesophageal echocardiogram by cardiology, he was found to have a large thin elongated mass with independent motion seen attached to the left ventricular outflow tract below the aortic valves, highly concerning for infective endocarditis. Patient persistently was bacteremic, gram-positive cocci identification came back positive for methicillin-resistant staph aureus, sensitive to vancomycin. Patient's last blood cultures on 07/15/2020, again show gram-positive cocci. The case was discussed with cardiothoracic surgery, patient would require open heart surgery due to persistent bacteremia and sepsis. After discussion with patient's family, patient's family preferred transfer to tertiary level care center for aortic valve surgery, patient was accepted by cardiothoracic surgery at [facility], patient was transferred to [facility] on 07/17/2020. In terms of patient's clinical progress, patient was septic on admission, required fluid boluses, was fluid responsive, but required pressors. For the last 24 hours, patient has been off Levophed, no hypotensive episodes has episodes of tachycardia heart rate in the high 110s, but improving, no ar rhythmia events. Patient has been saturating in the high 90s, on 1 to 2 L nasal cannula. No episodes of respiratory distress, did not require intubation. Given the patient's alcohol abuse, he did go through episodes of alcohol withdrawal, near transfer, he was out of the 72-hour window, his CIWA scores were on the lower end, no Ativan required. However patient persistently had episodes of confusion, but would answer questions appropriately at other times. Patient underwent a a CT scan of the brain which I reviewed with neurology that showed new low-attenuation wedge-shaped presumed subacute infarct in the left parietal lobe extending to the cortex, small amount of associated hemorrhage, minimal mass-effect on the lateral ventricle, no midline shift, additional patchy possible subacute infarct in the left cerebellum and the right periventricular white matter. Thus these findings are highly concerning for septic emboli, neurology recommended no steroids, no anticoagulation given his thrombocytopenia, recommended urgent surgical intervention for his endocarditis. I went over these new findings with patient's family, they have again agreed on transfer, even with the new information, I advised patient's family that it would be hard to discern patient's likelihood of meaningful recovery. As per currently patient is bacteremic from his endocarditis, only time will tell what and if which neurologic deficits he will have from embolic strokes, they voiced understanding, all questions answered. In terms of patient's CODE STATUS, currently patient's family wants everything done for him, as patient cannot make decisions for himself given his fluctuating sensorium, they want all interventions, they understand that patient might remain on mechanical ventilation for up to a few weeks, and may not come off mechanical ventilation, they voiced understanding, all questions answered, agreed to proceed for transfer. Physical Exam Const: COMMON NORMALS: no acute distress and alert GENERAL APPEARANCE: cooperative NUTRITIONAL APPEARANCE: thin ORIENTATION/CONSCIOUSNESS: Yes awake, Yes oriented to person and Yes confused; not oriented to place and not oriented to time Eye: COMMON NORMALS: Equal, round and reactive pupils present PUPIL: Yes Equal, round and reactive pupils present Neck/C-Spine: COMMON NORMALS: no JVD Lymph: LYMPHATIC: no lymphadenopathy noted Chest: COMMONS NORMALS: normal inspection of the chest Cardio: COMMON NORMALS: no JVD, regular rate, regular rhythm, S1 normal heart sound present and S2 normal heart sound present RATE: regular rate RHYTHM: regular rhythm HEART SOUNDS: S1 normal heart sound present and S2 normal heart sound present GI: COMMON NORMALS: Normal to inspection, nondistended, normoactive bowel sounds present, Soft to palpation, non-tender and No hepatosplenomegaly present PALPATION: Yes Soft to palpation and Yes No hepatosplenomegaly present Neuro: SENSORIUM/ORIENTATION: Yes alert, Yes oriented to person, No oriented to place, No oriented to time and Yes fluctuating sensorium SPEECH: speech normal OTHER: Does not follow neurologic exam appropriately, fluctuating sensorium Sepsis: Is patient septic: Yes Focused sepsis exam performed: Yes Date exam was performed: 07/17/20 Time exam was performed: 07:14 TS Data Data Completed and Pending: Completed Studies During Hospitalization Category Date Time Status CT abdomen pelvis w con* [id number] Urge nt Cat Scan 07/15/20 10:[address] chest w con* 7 1260 Routine Cat Scan 07/13/20 20:[address] head wo con* 7 0450 Stat Cat Scan 07/13/20 09:[address] head wo con* 7 0450 Stat Cat Scan 07/17/20 11:[address] lumbar spine w o con* 24286 Routi ne Cat Scan 07/13/20 12:[address] thoracic spin wo con* [id number] Rout ine Cat Scan 07/13/20 12:44 Completed XR chest 1V ashvin ble [id number] Stat Exams 07/13/20 09:45 Completed MR cervical spin wo con* [id number] Rout ine MRI 07/15/20 10:15 Completed MR thoracic spin wo con* 07256 Rout ine MRI 07/15/20 10:15 Completed CV echo complete* 28470 Routine Ultrasound 07/14/20 10:22 [place] [id number] Urgent Ultrasound 07/15/20 10:30 Completed Pending at discharge Category Date Time Status Blood Culture Rou isaac Lab 07/14/20 10:45 Results Blood Culture Sta t Lab 07/13/20 11:32 Results Blood Culture Sta t Lab 07/15/20 12:55 Results C Reactive Protei n AM LABS Lab 07/18/20 04:00 Ordered C Reactive Protei n AM LABS Lab 07/19/20 04:00 Ordered Complete Blood Co unt w/Auto AM LABS Lab 07/18/20 04:00 Ordered Complete Blood Co unt w/Auto AM LABS Lab 07/19/20 04:00 Ordered Comprehensive Met abolic Panel AM LA BS Lab 07/18/20 04:00 Ordered Comprehensive Met abolic Panel AM LA BS Lab 07/19/20 04:00 Ordered Magnesium AM LABS Lab 07/18/20 04:00 Ordered Magnesium AM LABS Lab 07/19/20 04:00 Ordered Phosphorus AM LAB S Lab 07/18/20 04:00 Ordered Phosphorus AM LAB S Lab 07/19/20 04:00 Ordered Procalcitonin AM LABS Lab 07/18/20 04:00 Ordered Procalcitonin AM LABS Lab 07/19/20 04:00 Ordered Vancomycin Trough Timed Lab 07/17/20 22:00 Ordered CV echo transesop hageal 24625 Routi ne Ultrasound 07/16/20 16:30 Taken Labs from last 24 hours 07/17/20 07/17/20 07/17/20 12:23 11:20 07:36 WBC RBC Hgb Hct MCV MCH MCHC RDW Plt Count MPV Neut % (Auto) Lymph % (Auto) Andrews % (Auto) Eos % (Auto) Baso % (Auto) Neut # (Auto) Lymph # (Auto) Andrews # (Auto) Eos # (Auto) Baso # (Auto) Nucleated RBC % (a uto) Nucleated RBCs # Sodium Potassium Chloride Carbon Dioxide Anion Gap BUN Creatinine GFR Calculation Glucose POC Glucose 161 190 Calculated Osmolal ity Calcium Phosphorus Magnesium Total Bilirubin AST ALT Alkaline Phosphata se C-Reactive Protein Total Protein Albumin Globulin Procalcitonin SARS-CoV-2 Ag (Rap id) Negative 07/17/20 07/17/20 07/17/20 03:43 03:43 03:43 WBC 16.3 H RBC 3.10 L Hgb 10.6 L Hct 31.7 L MCV 102.3 H MCH 34.2 H MCHC 33.4 RDW 13.1 Plt Count 31 L MPV 13.3 H Neut % (Auto) 81.7 Lymph % (Auto) 6.8 Andrews % (Auto) 9.2 Eos % (Auto) 0.1 Baso % (Auto) 0.4 Neut # (Auto) 13.30 H Lymph # (Auto) 1.1 Andrews # (Auto) 1.5 H Eos # (Auto) 0.0 Baso # (Auto) 0.1 Nucleated RBC % (a uto) 0 Nucleated RBCs # 0.0 Sodium 141 Potassium 3.8 Chloride 111 H Carbon Dioxide 17 L Anion Gap 16.8 BUN 68 H Creatinine 1.2 GFR Calculation 61.8 L Glucose 164 H POC Glucose Calculated Osmolal ity 295 Calcium 7.0 L Phosphorus 4.6 H Magnesium 2.3 Total Bilirubin 1.1 AST 44 H ALT 26 Alkaline Phosphata se 73 C-Reactive Protein 109.3 H Total Protein 6.0 L Albumin 1.6 L Globulin 4.4 Procalcitonin 3.95 H SARS-CoV-2 Ag (Rap id) 07/16/20 07/16/20 20:05 17:46 WBC RBC Hgb Hct MCV MCH MCHC RDW Plt Count MPV Neut % (Auto) Lymph % (Auto) Andrews % (Auto) Eos % (Auto) Baso % (Auto) Neut # (Auto) Lymph # (Auto) Andrews # (Auto) Eos # (Auto) Baso # (Auto) Nucleated RBC % (a uto) Nucleated RBCs # Sodium Potassium Chloride Carbon Dioxide Anion Gap BUN Creatinine GFR Calculation Glucose POC Glucose 115 141 Calculated Osmolal ity Calcium Phosphorus Magnesium Total Bilirubin AST ALT Alkaline Phosphata se C-Reactive Protein Total Protein Albumin Globulin Procalcitonin SARS-CoV-2 Ag (Rap id) Vitals: Last Vital Signs Temp 98.2 F 07/17/20 10:00 Pulse 102 H 07/17/20 10:00 Resp 26 H 07/17/20 10:00 BP 111/48 07/17/20 10:00 Pulse Ox 96 07/17/20 10:00 TS Medications Medications Home Medications amlodipine 2.5 mg tablet 2.5 mg PO DAILY 30 Days #30 tab 03/20/20 [Rx Confirmed 07/13/20] hydrocodone 10 mg-acetaminophen 325 mg tablet 1 tab PO TID PRN 03/20/20 [History Confirmed 07/13/20] lisinopril 40 mg tablet 40 mg PO DAILY 30 Days #30 tab 03/20/20 [Rx Confirmed 07/13/20] sitagliptin 25 mg tablet 25 mg PO DAILY #30 tab 07/09/20 [Rx Confirmed 07/13/20] aspirin [Aspir-81] 81 mg PO PRN 07/13/20 [History Confirmed 07/13/20] metformin 500 mg tablet 500 - 1,000 mg PO DAILY PRN 30 Days #60 tab 07/13/20 [Rx Confirmed 07/13/20] Active Medications Acetaminophen (Tylenol) 650 mg PO Q6H PRN PRN Reason: Mild/Mod Pain Or Temp >/= 101 Last Admin: 07/17/20 04:09 Dose: 650 mg Documented by: Aspirin (Aspirin Ec) 81 mg PO PRN [facility] Dextrose (D50w) 25 ml IVP ONCE PRN; Protocol PRN Reason: hypoglycemia protocol Dextrose (D50w) 50 ml IVP PRN PRN; Protocol PRN Reason: hypoglycemia protocol Docusate Sodium (Colace) 100 mg PO BID [facility] Last Admin: 07/17/20 08:50 Dose: 100 mg Documented by: Folic Acid (Folic Acid) 1 mg PO DAILY [facility] Last Admin: 07/17/20 08:50 Dose: 1 mg Documented by: Glucagon (Glucagen) 1 mg IM ONCE PRN; Protocol PRN Reason: Adult Acute Hypoglycemia Prot. Sodium Chloride (Sodium Chloride 0.9%) 1,000 mls @ 75 mls/hr IV .[id number] [facility] Last Infusion: 07/17/20 05:34 Dose: 75 mls/hr Documented by: Dextrose (D5w) 500 mls @ 100 mls/hr IV ONCE PRN; Protocol PRN Reason: Adult Acute Hypoglycemia Prot Vancomycin HCl 1,250 mg/ (Sodium Chloride) 250 mls @ 200 mls/hr IV Q12H [facility]; Protocol Last Admin: 07/17/20 12:25 Dose: 200 mls/hr Documented by: Piperacillin Sod/Tazobactam (Sod 3.375 gm/ Sodium Chloride) 50 mls @ 12.5 mls/hr IV Q8H [facility] Last Admin: 07/17/20 13:41 Dose: 12.5 mls/hr Documented by: Norepinephrine Bitartrate 4 mg (/ Dextrose) 254 mls @ 0 mls/hr IV .Q0M [facility]; Protocol Last Titration: 07/16/20 13:00 Dose: Infused Documented by: Insulin Aspart (Novolog) 0 unit SUBCUT BEDTIME [facility]; Protocol Last Admin: 07/16/20 20:10 Dose: Not Given Documented by: Insulin Aspart (Novolog) 0 unit SUBCUT TIDWM [facility]; Protocol Last Admin: 07/17/20 12:37 Dose: 4 unit Documented by: Insulin Detemir (Levemir) 5 unit SUBCUT DAILY [facility] Last Admin: 07/17/20 08:55 Dose: 5 unit Documented by: Lorazepam (Ativan) 2 mg IM PROTOCOL PRN; Protocol PRN Reason: ALCOWD Lorazepam (Ativan) 2 mg PO PROTOCOL PRN; Protocol PRN Reason: WITHDRAWAL Multivitamins Therapeutic (Multivitamin Tab) 1 tab PO DAILY [facility] Last Admin: 07/17/20 08:50 Dose: 1 tab Documented by: Naloxone HCl (Narcan) 0.1 mg IVP Q2M PRN PRN Reason: OPIATERV Ondansetron HCl (Zofran) 4 mg IVP Q8H PRN PRN Reason: vomiting, or N/V if npo Ondansetron HCl (Zofran) 4 mg IVP Q6H PRN PRN Reason: NAUSEA AND VOMITING Thiamine Mononitrate (Vitamin B-1) 100 mg PO DAILY [facility] Last Admin: 07/17/20 08:50 Dose: 100 mg Documented by: Discharge Plan Discharge Patient Disposition: Xfer Other Condition: Stable Prescriptions: No Action hydrocodone-acetaminophen 10-325 mg tablet 1 tab PO TID PRN (Reason: Pain) RF: 0 amlodipine 2.5 mg tablet 2.5 mg PO DAILY 30 Days Qty: 30 RF: 5 lisinopril 40 mg tablet 40 mg PO DAILY 30 Days Qty: 30 RF: 5 Novuvia 25 mg tablet 25 mg PO DAILY Qty: 30 RF: 0 metformin 500 mg tablet 500 - 1,000 mg PO DAILY PRN (Reason: Type II DM) 30 Days Qty: 60 RF: 2 Aspir-81 81 mg Tablet,Delayed Release (Dr/Ec) 81 mg PO PRN RF: 0 Discharge Orders: Discharge Order (Routine); Ordered 07/17/20 Ordered By: Jovanni Lipscomb Transfer Attestations Time Spent in Transfer Care*: less than 30 min Quality Metrics Clinical Quality Measures: During this hospital stay, did patient experience: Stroke Contraindication to Antithrombotic: Other Contraindication to Anticoagulation: Other Contraindication to Statin: Other Coding Level of Care Code Acute [employer] for [employer] Fwd Diagnoses Infective endocarditis I33.0 Infective endocarditis organism: bacterial Chronicity: acute Sepsis A41.02; R65.20; G93.41 Sepsis acute organ dysfunction status: with acute organ dysfunction Sepsis type: methicillin resistant Staphylococcus aureus Severe sepsis acute organ dysfunction type: encephalopathy Severe sepsis shock status: unspecified Staphylococcus aureus bacteremia R78.81; B95.61 Cavitary lung disease J98.4 Septic embolism I76 Sepsis Event Note Evaluation Current stage of sepsis: sepsis Possible source: endocarditis Focused Exam Vital Signs Temp Pulse Resp BP Pulse Ox 07/17/20 10:00 98.2 F 102 H 26 H 111/48 96 07/17/20 08:00 107 H 29 H 126/48 95 07/17/20 06:17 109 H 30 H 130/51 94 07/17/20 05:33 99.3 F 07/17/20 04:05 101.0 F H 113 H 31 H 125/60 95 Cardiovascular exam: Present tachycardia Capillary refill: < 3 Seconds Peripheral pulse strength: 2+ Slightly Diminished Skin exam: normal turgor Date exam was performed: 07/17/20 Time exam was performed: 15:15 Problem List (1) Infective endocarditis: Status: Acute (2) Sepsis: Status: Acute (3) Staphylococcus aureus bacteremia: Status: Acute (4) Cavitary lung disease: Status: Acute (5) Septic embolism: Status: Acute
--- NOTE | 2020-07-17 15:22 | PC.NURSE ---
[facility] called with room number 7224A, report called to Telma RN, family notified and Brother signed Transfer paperwork, HCP notified of bed availability, [facility] to Transfer
[2020-07-17] MEDS: sodium chloride 0.9% 1,000 ML 75 ML IV (15:24)
--- NOTE | 2020-07-17 16:06 | PC.NURSE ---
Pt KASHIF at this time with [facility]
--- NOTE | 2020-07-17 17:54 | PM.PN ---
Subjective Subjective: Interval history: He is s/p MARISSA yesterday. Family meeting was arranged today. Medications: Reviewed: Yes Vitals/I&O/Wt Last Vital Signs Temp 98.2 F 07/17/20 16:11 Pulse 112 H 07/17/20 16:11 Resp 28 H 07/17/20 16:11 BP 129/51 07/17/20 16:11 Pulse Ox 92 07/17/20 16:11 07/17/20 07/17/20 07/17/20 06:59 14:59 22:59 Intake Total 915 / 3040.285 435 / 435 Output Total 250 / 750 90 / 90 Balance 665 / 2290.285 345 / 345 Weight last 48 hrs Weight 160 lb 11.2 oz Weight 157 lb 9.6 oz Physical Exam Const: COMMON NORMALS: average body habitus EXAM LIMITATIONS: altered mental status GENERAL APPEARANCE: lethargic and ill appearing ORIENTATION/CONSCIOUSNESS: Yes lethargic HENMT: COMMON NORMALS: normocephalic and atraumatic HEAD & SCALP: normocephalic and atraumatic TEETH & GINGIVA: Yes poor dentition and Yes teeth discoloration Eye: COMMON NORMALS: Equal, round and reactive pupils present, EOMs intact bilaterally and conjunctivae normal CONJUNCTIVA: Yes conjunctivae normal SCLERA: sclerae normal PUPIL: Yes Equal, round and reactive pupils present Neck/C-Spine: COMMON NORMALS: supple and no JVD; negative for No carotid bruits Resp: COMMON NORMALS: clear to auscultation bilaterally (anterior lung crow) AUSCULTATION: clear to auscultation bilaterally (anterior lung crow), no crackles, no rales, no rhonchi and no wheezes Cardio: COMMON NORMALS: no JVD, regular rate, regular rhythm, S1 normal heart sound present, S2 normal heart sound present and Peripheral pulses 2+ throughout JUGULAR VENOUS DISTENTION: no JVD PALPATION: normal PMI, no heave, no palpable S3 and no thrill RATE: regular rate RHYTHM: regular rhythm HEART SOUNDS: S1 normal heart sound present, S2 normal heart sound present, no gallops and Murmur heart sound present diastolic Intensity: III/ BRUITS: no carotid bruits PERIPHERAL PULSES: Peripheral pulses 2+ throughout GI: COMMON NORMALS: Soft to palpation PALPATION: Yes Soft to palpation Neuro: SENSORIUM/ORIENTATION: Yes lethargic Data : 07/17/20 03:43 07/17/20 03:43 Micro: Microbiology 07/14/20 10:45 Blood Culture - Final Blood Methicillin Resis Staph Aureus 07/14/20 10:34 Blood Culture - Final Blood Methicillin Resis Staph Aureus 07/13/20 10:15 Blood Culture - Final Blood Methicillin Resis Staph Aureus 07/13/20 11:32 Blood Culture - Final Blood Methicillin Resis Staph Aureus 07/15/20 13:00 Blood Culture - Preliminary Blood Staphylococcus aureus 07/15/20 12:55 Blood Culture - Preliminary Blood Staphylococcus aureus CT Head: Radiologist's impression: IMPRESSION: 1. New low-attenuation wedge-shaped presumed subacute infarct in the left parietal lobe extending to the cortex. Small amount of associated hemorrhage. Minimal mass effect on the left lateral ventricle. No midline shift. 2. Additional patchy possible subacute infarcts in the left cerebellum and right periventricular white matter. This can be further evaluated with MRI. 3. No hydrocephalus. 4. No other significant changes. A&P Assessment and plan (1) Infective endocarditis: Large elongated mass with independent motion seen attached to left ventricular outflow tract below aortic valves. Globular thickening noted on left and non coronary cusps of aortic valve as well. These finding are suggestive of infective endocarditis. Severe aortic valve regurgitation. These findings were discussed with patient's brother Greg and his . Images were reviewed with Dr. Butts and his consult was requested. There was a detailed discussion with Dr. Marquez and the family informing them of critical situation of the patient and high risk of operative mortality. Patient's brother Greg and his expressed their understanding of the situation. They decided to have a family meeting and then they would inform us of their decision. After discussing with patient's family; decision to transfer the patient to [facility] for further management. Status: Acute Qualifiers: Infective endocarditis organism: bacterial Chronicity: acute Qualified Code(s): I33.0 - Acute and subacute infective endocarditis (2) Sepsis: Status: Acute Qualifiers: Sepsis acute organ dysfunction status: with acute organ dysfunction Sepsis type: methicillin resistant Staphylococcus aureus Severe sepsis acute organ dysfunction type: encephalopathy Severe sepsis shock status: unspecified Qualified Code(s): A41.02 - Sepsis due to Methicillin resistant Staphylococcus aureus; R65.20 - Severe sepsis without septic shock; G93.41 - Metabolic encephalopathy (3) Staphylococcus aureus bacteremia: On broad spectrum antibiotics. Status: Acute (4) Cavitary lung disease: CT chest read as There is a 3.2 x 2.5 cm pleural based mass in the right upper lobe of the lung as seen on sagittal image 54. There is internal gas. No associated calcification. There is an adjacent 0.7 cm nodule in the right upper lobe on series 2, image 19 and a 1.3 cm nodule in the anterior right upper lobe on image 24. There are nodules in the right middle lobe on series 2, images 39 and 40 measuring less than a cm in size. There is a 1.3 cm nodule in the left upper lobe with internal cavitation on series 2, image 22 and a 0.3 cm nodule in the left lower lobe on image 34. There is a calcified granuloma in the right middle lobe of the lung. IMPRESSION: There is a pleural based mass in the right upper lobe of the lung with internal cavitation. Other nodules are identified in the bilateral lungs. Findings are suspicious for malignancy with multifocal metastatic nodules.If there is desire for further evaluation, a PET scan or biopsy could be performed . There was concern for septic emboli and findings were thought not to be due to MRSA pneumonia ?. Status: Acute (5) Septic embolism: To spleen and brain. ?Lung in absence of PFO/ASD. No evidence of tricuspid or pulmonary valves infective endocarditis. There is a small globular thickening noted in the right atrium however this does not have the typical appearance of vegetation. Status: Acute Additional A&P Information Hyponatremia Hypotension : was on levophed overnight. Off pressor at the time of exam. Concern for pyelonephritis Thrombocytopenia Transaminitis Macrocytic anemia Alcohol abuse h/o hypertension Hyperlipidemia I appreciate Dr. Marquez's help and expertise in managing the patient Attestations Medical Necessity Statement*: As per primary team. Coding Level of Care Code Acute [facility] for [facility] Fwd Diagnoses Infective endocarditis I33.0 Infective endocarditis organism: bacterial Chronicity: acute Sepsis A41.02; R65.20; G93.41 Sepsis acute organ dysfunction status: with acute organ dysfunction Sepsis type: methicillin resistant Staphylococcus aureus Severe sepsis acute organ dysfunction type: encephalopathy Severe sepsis shock status: unspecified Staphylococcus aureus bacteremia R78.81; B95.61 Cavitary lung disease J98.4 Septic embolism I76
== END 2020-07-17 16:00 | disposition short-term general hospital (02) | DRG 871 ==
LOC: ER 12:28 → MEDSURG 12:35 → ICU 07-15 17:26
PROVIDERS: Admitting Provider Family Medicine; Emergency Provider Family Medicine; Visit Provider Family Medicine
DX: A41.02 Sepsis due to Methicillin resistant Staphylococcus aureus (principal); G93.41 Metabolic encephalopathy; I33.0 Acute and subacute infective endocarditis; N30.01 Acute cystitis with hematuria; E87.1 Hypo-osmolality and hyponatremia; I76 Septic arterial embolism; E87.2 Acidosis; N12 Tubulo-interstitial nephritis, not specified as acute or chronic; E46 Unspecified protein-calorie malnutrition; R65.20 Severe sepsis without septic shock; I10 Essential (primary) hypertension; M54.9 Dorsalgia, unspecified; G89.29 Other chronic pain; J44.9 Chronic obstructive pulmonary disease, unspecified; E11.65 Type 2 diabetes mellitus with hyperglycemia; E78.2 Mixed hyperlipidemia; E55.9 Vitamin D deficiency, unspecified; Z87.891 Personal history of nicotine dependence; D69.59 Other secondary thrombocytopenia; Z66 Do not resuscitate; B95.61 Methicillin susceptible Staphylococcus aureus infection as the cause of diseases classified elsewhere; I95.9 Hypotension, unspecified; F10.20 Alcohol dependence, uncomplicated; Z79.84 Long term (current) use of oral hypoglycemic drugs; Z79.82 Long term (current) use of aspirin; I35.1 Nonrheumatic aortic (valve) insufficiency; Z68.24 Body mass index [BMI] 24.0-24.9, adult; M79.89 Other specified soft tissue disorders; R53.1 Weakness; R91.8 Other nonspecific abnormal finding of lung field
CPT/HCPCS: 12345; 36415; 36416; 70450; 71045; 71260; 72128; 72131; 72141; 72146; 74177; 80053; 80074; 80202; 80500; 81001; 82550; 82962; 83010; 83036; 83605; 83615; 83735; 84100; 84145; 84295; 84443; 85007; 85025; 85362; 85378; 85384; 85610; 85730; 86140; 87040; 87077; 87086; 87186; 87205; 87426; 87641; 87806; 93005; 93306; 93312; 93320; 93325; 93970; 96372; 96375; 97110; 97116; 97161; 97166; 97530; 99284; J0696; J1650; J1815; J2270; J2370; J2543; J3370; J7030; J7040; J7050; Q9967